=== PATIENT | male | born 1970 | race Caucasian/White ===

== ENCOUNTER 2019-09-14 14:20 | Outpatient (CLI) | payer OTHER, SELFPAY ==
--- NOTE | 2019-09-14 14:45 | DI.RAD_ITS ---
EXAM: XR CHEST 2V PA LATERAL CLINICAL HISTORY: Smoker with unintentional weight loss, R63.4 ABNORMAL WEIGHT LOSS TECHNIQUE: 2D digital imaging was performed. COMPARISON: No exams were available for comparison FINDINGS: MEDIASTINUM: Normal. HEART: Normal. PULMONARY VASCULATURE: Normal. LUNGS: Clear. Hyperinflation of the lungs with flattened diaphragms consistent with COPD. PLEURAL SPACE: No pleural effusion or pneumothorax. BONE:Normal. OTHER FINDINGS:Normal. IMPRESSION: No acute pulmonary findings. COPD. DATA REPOSITORY: RADIATION DOSE DELIVERED:
== END 2019-09-14 14:40 ==
PROVIDERS: PCP Family Medicine; Visit Provider Family Medicine
DX: R63.4 Abnormal weight loss (principal); F17.210 Nicotine dependence, cigarettes, uncomplicated; J44.9 Chronic obstructive pulmonary disease, unspecified
CPT/HCPCS: 71046

== ENCOUNTER 2019-09-15 01:48 | Outpatient (CLI) | payer OTHER, SELFPAY ==
[2019-09-15 13:43] LABS: Abs Immature Grans 0.01 k/cumm (0.0-0.09); Absolute Basophil Count 0.03 k/cumm (0.0-0.2); Absolute Eosinophil Count 0.21 k/cumm (0.0-0.7); Absolute Lymphocyte Count 2.23 k/cumm (1.2-3.4); Absolute Monocyte Count 0.75 k/cumm (0.11-0.7); Basophils % 0.4; Eosinophils % 3.1; HGB 13.9 g/dL (13.5-17.5); Immature Grans % 0.1 %; Lymphocytes % 33.1; Mean Corp. HGB Concentration 33.9 g/dL (32.0-36.0); Mean Corpuscular Hemoglobin 31.7 pg (27.0-33.0); Mean Corpuscular Volume 93.6 fL (80-95); Monocytes % 11.1; Neutrophils % 52.2; Platelet Count 428 x1000/uL (130-400); RBC 4.38 m/cumm (4.50-6.00); RBC Distribution Width 14.3 % (11.8-14.1); White Blood Cell Count 6.73 k/cumm (4.4-10.8)
[2019-09-15 14:36] LABS: ESR 8 mm/hr (0-15)
[2019-09-15 14:40] LABS: ALT 27 U/L (16-63); AST 20 U/L (15-37); Albumin 4.1 g/dL (3.4-5.0); Alkaline Phosphatase 53 U/L (46-116); Anion Gap 9.5 mmol/L (3-11); BUN 17 mg/dL (7-18); Bilirubin, Total 0.3 mg/dL (0.2-1.0); CO2 27.5 mmol/L (21.0-32.0); CREATININE 1.04 mg/dL (0.70-1.30); Calcium 9.4 mg/dL (8.5-10.1); Calculated LDL 111 mg/dL (<100); Chloride 106 mmol/L (98-107); Cholesterol 197 mg/dL (<200); Glucose 91 mg/dL (74-106); HDL Cholesterol 80 mg/dL (40-60); Sodium 143 mmol/L (136-145); TSH (W/Ref FT4) 1.19 uIU/mL (0.36-3.74); Total Protein 6.5 g/dL (6.4-8.2); Triglyceride 34 mg/dL (<150)
[2019-09-16 08:46] LABS: PSA, Screening 0.3 ng/mL (0.0-3.5)
== END 2019-09-15 02:08 ==
PROVIDERS: PCP Family Medicine; Visit Provider Family Medicine
DX: R63.4 Abnormal weight loss (principal); Z80.42 Family history of malignant neoplasm of prostate
CPT/HCPCS: 36415; 80053; 80061; 84153; 85652; 84443; 85025

== ENCOUNTER 2019-11-17 07:13 | Day surgery (SDC) | payer OTHER, SELFPAY ==
[2019-11-17 07:26] VITALS: BP 124/79; PULSE 76; RESP 18; TEMP 36.7; O2SAT 99
[2019-11-17] MEDS: Lactated Ringers 1,000 ML 80 ML IV (08:02)
--- NOTE | 2019-11-17 08:54 | BOWEL_PTH ---
PATIENT: Jeferson Zamudio LOC: [facility] U#:[id number] AGE/SX: 49/M ROOM: RE11/17/[address]: Lashonda Boyle : 1970 BED: DIS: 11/17/2019 SPEC #: [id number] RECD: 11/17/19 12:37 STATUS: JEANNA REAndrea #: [id number] CONRAD: 11/17/19 08:[address]: Lashonda Boyle DEPT: Surgical Specimen RECD BY: Toyin Oconnell ENTERED: 11/17/19 12:46 SP TYPE: Bowel OTHR DR: Devon Ponce MD Tissues: 1 - BIOPSY BOWEL 2 - BIOPSY BOWEL 3 - BIOPSY BOWEL 4 - BIOPSY BOWEL 5 - BIOPSY BOWEL Procedures: GROSS AND MICRO LEVEL 4 Comments: [id number]
--- NOTE | 2019-11-17 09:38 | W.PM.OP ---
Date of service: 11/17/19 Time of Service: 09:38 Operative Note Operative Note DATE OF PROCEDURE: 11/17/19 PRE-OP DIAGNOSIS: screening/rectal bleeding POST-OP DIAGNOSIS: other (diverticula and polyps) PROCEDURE: After informed consent was obtained the patient was taken to the procedure room and placed in a left decubitous position. Monitors were applied and a time out was done. The patients name, date of , procedure, allergies to medications and metal in their body was reviewed. The patient was then sedated. Once sedated and comfortable a rectal exam was done. External exam was normal. Internal exam revealed a normal sphincter tone and no palpable masses. The scope was then introduced and retrofelexed. No internal hemorrhoids were identified. The is polyps in a 1 cm polyp in the rectum that was removed with a hot snare. There are 2 other smaller, 2 mm polyps in the rectum that removed with cold polypectomy forcep. There is a polyp at 20 cm that is removed with a hot polypectomy forcep. There Is another 1cm polyp at 50 cm that is removed with snare. There is a 1 cm flat polyp at 80 cm that is removed with a hot polypectomy forcep. And another small polyp 3 mm polyp at 80 cm that is removed with a cold forcep. There is x3 polyps in the cecum that are removed with a cold forcep. The scope was then advanced to the cecum w/ difficulty. The TI and appendiceal orifice were identified. The prep was good. The scope was then slowly retracted over 20 minutes back into the rectum. He has a very few small diverticular openings that are confined to the sigmoid colon. There is no signs of active bleeding or infection. The mucosa is otherwise pink and healthy. The scope was removed and the patient was woken up and taken back to Same day surgery in stable condition. The patient tolerated the procedure well and there were no immediate complications. Follow up: The patient should follow up in 2-3 years- path pd unless they develop changes in bowel habits or other new gastrointestinal complaints.
--- NOTE | 2019-11-17 09:48 | W.PM.DSUDISC ---
Discharge Plan Disposition Patient Disposition: HOME Condition: Good Discharge Details Reason For Visit: colon scope Attending Provider: Lashonda Boyle Primary Care Provider: Devon Ponce Home Meds and New Rx's Prescriptions: Continued ibuprofen 200 MG tablet 800 mg PO TID PRNRF: 0 Discontinued polyethylene glycol 3350 17 gram/dose powder 238 g PO ONCE Qty: 238 RF: 0 bisacodyl [Dulcolax (bisacodyl)] 5 mg tablet,delayed release (DR/EC) 5 mg PO ONCE Qty: 4 RF: 0 Discharge Instructions Additional Instructions: Findings:6 polyps and minor diveritcula Follow up: Will need to repeat CE in 2-3yrs -No ASA/NSAID's x 10days. Tylenol is OK -May have some bleeding w/ first BM -No lifting over 20 pounds or strenuous activity x72 hours. -Small light meals x24 hours Please call if you develop: fevers >101.5 Nausea or Vomiting Abdominal pain that is not transient DAY SURGERY UNIT POST COLONOSCOPY INSTRUCTIONS 1. Because there will be medication in your system for the next 24 hours, you may feel a little sleepy. Your coordination will be affected. Therefore: a. Do not drive or operate dangerous equipment for 24 hours. b. Do not drink alcohol beverages for 24 hours (not even beer). c. Plan to go home and rest for the day. 2. Generally there are no restrictions on your activity after a day or so has gone by, but you may feel a bit fatigued for a few days. 3 After you arrive home you may have a light meal and return to a normal diet as you can tolerate it without feeling sick to your stomach. 4. After surgery, you may feel pain or discomfort. This should be only transient, but if it persists please contact your doctor. 5. If there are any questions regarding the findings of your procedure, please feel free to contact your doctor. 6. If you are unable to contact your doctor with a problem, contact the hospital at [phone]. 7. Continue all your regular medications unless directed otherwise. I understand the above instructions and have no questions. Signature of Patient or Responsible Adult Escort Date/Time Name of Responsible Adult Escort Signature of Nurse Date/Time Discharge Orders Discharge Orders: Discharge Order (Routine); Ordered 11/17/19 Ordered By: Lashonda Boyle DS: Diagnosis Discharge Diagnosis (1) COPD (chronic obstructive pulmonary disease): Status: Chronic (2) Adenomatous polyps: Status: Acute (3) Diverticula of colon: Status: Acute
[2019-11-17 10:05] VITALS: BP 106/64; PULSE 55; RESP 18; TEMP 36.3; O2SAT 100
== END 2019-11-17 10:25 | disposition home or self-care (01) ==
PROVIDERS: PCP Family Medicine; Visit Provider Surgery
PROC: 0DJD8ZZ Inspection of Lower Intestinal Tract, Via Natural or Artificial Opening Endoscopic (ICD-10-PCS; CPT 45378; principal; 2019-11-17 08:15)
DX: Z12.11 Encounter for screening for malignant neoplasm of colon; K57.30 Diverticulosis of large intestine without perforation or abscess without bleeding; K63.5 Polyp of colon
CPT/HCPCS: 45385; 45380; 45384; 88305; J2704

== ENCOUNTER 2019-12-13 00:49 | Outpatient (CLI) | payer OTHER, SELFPAY ==
[2019-12-13 08:20] LABS: CREATININE 0.99 mg/dL (0.70-1.30)
[2019-12-13] MEDS: Normal Saline - Diluent 50 ML VIAL IV (09:53)
[2019-12-13] MEDS: Omnipaque 350 MG/ML 100 ML BTL IJ (09:56)
--- NOTE | 2019-12-13 10:14 | DI.CT_ITS ---
EXAM: CT CHEST/ABD/PEL W CLINICAL HISTORY: Unintentional weight loss of > 10% in 2ppd smoker,R63.4,F17.210. TECHNIQUE: Imaging Protocol: Axial computed tomography images with coronal and sagittal reformatted images were created and reviewed CONTRAST MATERIAL: Intravenous: Omnipaque 350 Contrast volume:100 cc Oral: yes / COMPARISON: MR MRI - LUMBAR SPINE WO CONTRAST from 07/17/2015 FINDINGS: CHEST: Thyroid: Normal Tracheobronchial tree: No bronchiectasis. Mediastinum and Eli: No dominant adenopathy or fluid collection. Pulmonary parenchyma: No consolidation or dominant measurable mass. Mild centrilobular emphysema. Pleura: No effusion or pneumothorax. Lymph nodes: Within normal limits. Aorta: Thoracic portion non-dilated. No significant atherosclerotic changes. Heart: Normal size. No visible coronary artery calcifications. Bones: Mild degenerative changes. ABDOMEN: Liver: Normal density. 3.8 centimeter mass in the right lobe at the level of the right kidney. Tiny cyst left lobe. Gallbladder and biliary tract: No radiodense calculus or dilation. Pancreas: Normal density, no abnormal calcifications or inflammatory process. Spleen: Normal. Kidneys: Normal size, contour and axis. No radiodense stones or obstructive uropathy. No masses seen. Adrenal glands: No masses seen. Aorta: Abdominal portion non-dilated. Lymph nodes: Within normal limits. PELVIS: Bladder: Symmetric distention, no gross wall thickening. Bowel: No obstruction or bowel wall thickening. Normal appendix. Peritoneal cavity: No ascites, collection or mesenteric inflammatory response. Bones: left-sided pars defect at L5. Degenerative disc changes at L5-S1. Reproductive organs: Within normal limits. IMPRESSION: 1. Mild centrilobular emphysema. No pulmonary mass or adenopathy. 2. 3.8 centimeter mass in the right lobe of the liver. MRI is recommended for further evaluation. RADIATION DOSE DELIVERED: 1,547.04mGy.cm Total DLP DATA REPOSITORY: All CT scans at this facility are submitted to the National Radiology Data Registry (NRDR) Dose Index Registry (DIR) with the [employer] (A[employer]). RADIATION OPTIMIZATION: All CT scans at this facility use at least one of these dose optimization te chniques: automated exposure control; mA and/or kV adjustment per patient size (includes targeted exa ms where dose is matched to clinical indication); or iterative reconstruction.
[2019-12-13] MEDS: Omnipaque 350 MG/ML 50 ML BTL IJ (10:16)
[2019-12-13] MEDS: Breeza Beverage 473 ML BTL PO (10:18)
== END 2019-12-13 01:09 ==
PROVIDERS: PCP Family Medicine; Visit Provider Family Medicine
DX: F17.210 Nicotine dependence, cigarettes, uncomplicated (principal); R63.4 Abnormal weight loss; J43.2 Centrilobular emphysema; R16.0 Hepatomegaly, not elsewhere classified
CPT/HCPCS: 74177; 71260; 82565; J3490; Q9967

== ENCOUNTER 2019-12-20 01:17 | Outpatient (CLI) | payer OTHER, SELFPAY ==
[2019-12-20] MEDS: Gadoterate meglumine 20 ML VIAL 10 ML IVP (09:17)
--- NOTE | 2019-12-20 09:20 | DI.MRI_ITS ---
EXAM: MR ABDOMEN WO/W CLINICAL HISTORY: 3.8 cm liver mass noted on CT scan of the abdomen,R16.0.. TECHNIQUE: Multiplanar multisequence MRI was performed. COMPARISON: CR XR CHEST 2V PA LATERAL from 09/14/[address] CHEST/ABD/PEL W from 12/13/2019 FINDINGS: MR examination of the abdomen was performed utilizing hepatic scanning protocol including multiphasic post contrast imaging. Patient had a 3.8 cm in diameter hepatic mass identified on recent abdominal CT. T2 weighted imaging shows a 3.3 cm in diameter lobulated mass of the right hepatic lobe posteriorly. This is high signal on T2 weighted imaging. An 11 millimeter in diameter left lobe high signal hepa tic mass is also identified on T2 weighted imaging. These findings are consistent with hepatic heman gioma. On T1 weighted imaging the mass is mildly decreased signal and appears lobulated. Diffusion-weighted imaging shows high signal in the right hepatic lobe lesion. Lesion is of intermed iate signal on ADC imaging. Post contrast enhancement images show peripheral enhancement with nodular to irregular appearance. T he final image was a 5 minutes post contrast delayed image which shows significant but incomplete ??? filling in??? of the lesion, the findings are consistent with hemangioma but not definitively diagnos tic. Spleen, adrenals, and kidneys are unremarkable in appearance by MR criteria. Abdominal aorta is of n ormal diameter. No retroperitoneal adenopathy. IMPRESSION: 3-4 cm in diameter right lobe posterior segment hepatic lesion has appearance consistent with but not definitively diagnostic of hemangioma. Follow-up CT examination of the liver is recommended in 6 mo nths. DATA REPOSITORY:
== END 2019-12-20 01:37 ==
PROVIDERS: PCP Family Medicine; Visit Provider Family Medicine
DX: K76.89 Other specified diseases of liver (principal); R16.0 Hepatomegaly, not elsewhere classified
CPT/HCPCS: 74183

== ENCOUNTER 2020-03-30 01:39 | Outpatient (CLI) | payer OTHER, SELFPAY ==
[2020-03-30 22:34] LABS: COVID-19 RT-PCR UVMMC Result Negative (Negative)
== END 2020-03-30 01:40 | disposition home or self-care (01) ==
LOC: LBO 01:39
PROVIDERS: PCP Family Medicine; Visit Provider Nurse Practitioner Family
DX: Z20.822 Contact with and (suspected) exposure to COVID-19 (principal)
CPT/HCPCS: U0003

== ENCOUNTER 2020-05-28 16:18 | Outpatient (REF) | payer OTHER, SELFPAY ==
[2020-05-28 16:29] LABS: Abs Immature Grans 0.04 10^3/uL (0.0-0.06); Absolute Basophil Count 0.07 10^3/uL (0.0-0.2); Absolute Eosinophil Count 0.15 10^3/uL (0.0-0.7); Absolute Lymphocyte Count 2.82 10^3/uL (1.2-3.4); Absolute Neutrophil Count 6.64 10^3/uL (1.2-6.7); Basophils % 0.7; Eosinophils % 1.4; HCT 42.2 % (40.0-50.0); HGB 14.2 g/dL (13.5-17.5); Immature Grans % 0.4; Lymphocytes % 26.3; MCH 31.5 pg (27.0-33.0); MCHC 33.6 % (32.0-36.0); MCV 93.6 fL (80-95); MPV 9.8 fL (8.0-11.0); Monocytes % 9.3; Neutrophils % 61.9; Nucleated RBC 0 %; Platelet Count 417 10^3/uL (130-400); RBC 4.51 10^6/uL (4.36-5.78); RDW 13.2 % (11.8-14.1); RDW-SD 45.4 fL; WBC 10.72 10^3/uL (4.4-10.8)
== END 2020-05-28 16:19 | disposition home or self-care (01) ==
LOC: LBN 16:18
PROVIDERS: PCP Family Medicine; Visit Provider Surgery
DX: K62.5 Hemorrhage of anus and rectum (principal); F17.210 Nicotine dependence, cigarettes, uncomplicated
CPT/HCPCS: 85025

== ENCOUNTER 2020-06-13 02:38 | Outpatient (CLI) | payer OTHER, SELFPAY ==
[2020-06-13 10:30] LABS: Source Nasal/Nares
[2020-06-13 15:51] LABS: COVID-19 PCR Negative (Negative)
== END 2020-06-13 02:39 | disposition home or self-care (01) ==
LOC: LBO 02:38
PROVIDERS: PCP Family Medicine; Visit Provider Surgery
DX: Z20.822 Contact with and (suspected) exposure to COVID-19 (principal); Z01.818 Encounter for other preprocedural examination
CPT/HCPCS: 87635

== ENCOUNTER 2020-06-15 06:18 | Day surgery (SDC) | payer OTHER, SELFPAY ==
[2020-06-15 06:27] VITALS: BP 118/73; PULSE 75; RESP 16; TEMP 36.3; O2SAT 94
[2020-06-15] MEDS: Lactated Ringers 1,000 ML 80 ML IV (06:52)
--- NOTE | 2020-06-15 08:25 | W.COLOREPORT ---
Date of service: 06/15/20 Time of Service: 08:25 Colonoscopy Report Date of procedure: 06/15/20 Pre-op diagnosis general: high grade dysplastic polyp in rectum Post-op diagnosis procedure note: same Procedure: internal hemorrhoid banding Anesthesia Type: General:No Airway Estimated blood loss (mL): 2 Pathology: none sent Complications: None Disposition: same day Prep: Miralax/Dulcolax Retraction Time: 12 Procedure Description: After informed consent was obtained the patient was taken to the procedure room and placed in a left decubitous position. Monitors were applied and a time out was done. The patients name, date of , procedure, allergies to medications and metal in their body was reviewed. The patient was then sedated. Once sedated and comfortable a rectal exam was done. He does have external hemorrhoids. Internal exam revealed a normal sphincter tone and no palpable masses. The scope was then introduced and retrofelexed. He has grade 1 internal hemorrhoids. X2. The scope was then advanced to the cecum w/out difficulty. The TI and appendiceal orifice were identified. The prep was good. The scope was then slowly retracted over 12 minutes back into the rectum. There are no polyps, AVMs, or diverticula are apparent today. The scar from where the previous polyp had been excised in the rectum was visualized. There is no signs of any recurrent polyps at this time. He does have x2 internal hemorrhoids. These were successfully banded today with no bleeding noted. The scope was removed and the patient was woken up and taken back to Same day surgery in stable condition. The patient tolerated the procedure well and there were no immediate complications. He will have a repeat CT today for Follow-up of the hemangioma in his liver. A 6-month follow-up study was recommended by radiology. Follow up: The patient should follow up in 1yr unless they develop changes in bowel habits or other new gastrointestinal complaints. addendum: Stable 3.3 centimeter liver mass per CT.
--- NOTE | 2020-06-15 09:27 | SUR.PHASEII ---
Pt completed drinking contrast at 09. Radiology phoned to inform. They stated they would be over to perform CT in approx. 60-90 mins.
--- NOTE | 2020-06-15 10:35 | W.PM.DSUDISC ---
Discharge Plan Disposition Patient Disposition: HOME Condition: Good Discharge Details Reason For Visit: colon scope Attending Provider: Lashonda Boyle Primary Care Provider: Devon Ponce Home Meds and New Rx's Prescriptions: Continued Chantix Starting Month Box 0.5 mg (11)- 1 mg (42) tablets,dose pack See Rx Instructions PO PER PKG DIR Qty: 53 RF: 0 nicotine 21-14-7 mg/24 hr patch, TD daily, sequential 1 patch transdermal DAILY Qty: 56 RF: 0 ascorbate calcium (vitamin C) 500 mg tablet 500 mg PO DAILY RF: 0 aspirin [Adult Aspirin Regimen] 81 mg tablet,delayed release (DR/EC) 81 mg PO DAILY RF: 0 cholecalciferol (vitamin D3) 25 mcg (1,000 unit) capsule 25 mcg PO DAILY RF: 0 nicotine (polacrilex) [Nicorette] 4 mg gum 4 mg buccal Q2H Qty: 40 RF: 3 ibuprofen 200 MG tablet 800 mg PO TID PRNRF: 0 Discontinued bisacodyl [Dulcolax (bisacodyl)] 5 mg tablet,delayed release (DR/EC) 5 mg PO ONCE Qty: 4 RF: 0 polyethylene glycol 3350 17 gram/dose powder 17 g PO ONCE Qty: 238 RF: 0 Discharge Instructions Additional Instructions: Findings:No polyps Follow up:TeleHealth appt: Please call if you develop: fevers >101.5 Nausea or Vomiting Abdominal pain that is not transient DAY SURGERY UNIT POST COLONOSCOPY INSTRUCTIONS 1. Because there will be medication in your system for the next 24 hours, you may feel a little sleepy. Your coordination will be affected. Therefore: a. Do not drive or operate dangerous equipment for 24 hours. b. Do not drink alcohol beverages for 24 hours (not even beer). c. Plan to go home and rest for the day. 2. Generally there are no restrictions on your activity after a day or so has gone by, but you may feel a bit fatigued for a few days. 3 After you arrive home you may have a light meal and return to a normal diet as you can tolerate it without feeling sick to your stomach. 4. After surgery, you may feel pain or discomfort. This should be only transient, but if it persists please contact your doctor. 5. If there are any questions regarding the findings of your procedure, please feel free to contact your doctor. 6. If you are unable to contact your doctor with a problem, contact the hospital at [phone]. 7. Continue all your regular medications unless directed otherwise. I understand the above instructions and have no questions. Signature of Patient or Responsible Adult Escort Date/Time Name of Responsible Adult Escort Signature of Nurse Date/Time Home Care Instructions after Rectal Surgery Pain control: Ibuprofen 600mg 6hrs (take w/ food. Do not take on an empty stomach) and Tylenol 1000mg by mouth (ibuprofen 400-600mg) every 8 hours. Do not take if you have ulcers or sensitivity to aspirin. Do not take Tylenol if you have hepatitis or liver failure. Alternate the Tylenol and ibuprofen. Take pain meds continuously for the first 72hrs. After 72hrs, you can take as needed if you are having pain. How to prevent constipation: The first bowel movement after surgery will be painful. Do not let yourself get constipated. Stay on a stool softener for the first two weeks after surgery. It is recommended that you use a fiber supplement (Metamucil, Citrucel) daily (1 tablespoon in 8 oz of water). If you do not have a bowel movement daily, use Milk of Magnesia or Miralax. You may have bleeding or drainage after rectal surgery; especially when you move your bowels. Use a sanitary napkin to collect the discharge. If you are passing large clots or having to change the pad more than every 4 hours, call the clinic or go to the ER. You may experience spasms in the rectal muscles. This is normal after surgery and last for about 3-5days. They can become more intense with bowel movements. The best remedy is to soak in a bathtub of plain warm water- no Epsom salts, essential oil or soap. It takes about 10 minutes further the spasm to stop. You may want to do this after BM as well. It is ok to shower. Avoid soap on the surgical area. Use a pillow to sit on. Follow a mild bland diet. Avoid alcohol, spicy food, citrus, and tomatoes. Avoid strenuous activity (running, jogging, and power walking, swimming, weight lifting) for 24 hrs . Activity:: see d/c instructions Diet:: Small light meals x24 hours DS: Diagnosis Discharge Diagnosis (1) Tubular adenoma: Status: Acute (2) Serrated adenoma of colon: Status: Acute (3) Cigarette smoker two packs a day or less: Status: Acute (4) Liver mass, right lobe: Status: Acute (5) Hemorrhoid: Status: Acute
[2020-06-15 11:04] VITALS: BP 125/62; PULSE 58; RESP 16; TEMP 36.6; O2SAT 99
== END 2020-06-15 11:20 | disposition home or self-care (01) ==
PROVIDERS: PCP Family Medicine; Visit Provider Surgery
PROC: 0DJD8ZZ Inspection of Lower Intestinal Tract, Via Natural or Artificial Opening Endoscopic (ICD-10-PCS; CPT 45378; principal; 2020-06-15 07:30)
DX: Z12.11 Encounter for screening for malignant neoplasm of colon (principal); Z86.010 Personal history of colon polyps; K64.8 Other hemorrhoids; K64.0 First degree hemorrhoids
CPT/HCPCS: 45398; J2001; J2704

== ENCOUNTER 2020-11-21 08:48 | Outpatient (CLI) | payer OTHER, SELFPAY ==
[2020-11-22 02:15] LABS: COVID-19 RT-PCR UVMMC Result Negative (Negative)
== END 2020-11-21 08:49 | disposition home or self-care (01) ==
LOC: LBO 08:51
PROVIDERS: PCP Nurse Practitioner Family; Visit Provider Nurse Practitioner Family
DX: Z20.822 Contact with and (suspected) exposure to COVID-19 (principal)
CPT/HCPCS: U0003

== ENCOUNTER 2021-02-01 11:26 | Emergency (ER) | payer OTHER, SELFPAY ==
[2021-02-01 11:31] VITALS: BP 127/80; PULSE 66; RESP 16; TEMP 36.4; O2SAT 97
--- NOTE | 2021-02-01 11:45 | RT.EKG_ITS ---
APPROVED REPORT Exam: Resting ECG Reason for Exam: BRADYCARDIA Patient Location: E HR:56 bpm ECG Measurements Heart Rate 56 AXIS DE 158 P -20 QRSd 94 QRS 68 QT 426 T 65 QTc 411 Conclusion Sinus bradycardia...rate< 60 ST elev, probable normal early repol pattern...ST elevation, age<55
--- NOTE | 2021-02-01 12:24 | W.ED.GENAD ---
Discharge Plan Disposition Patient Disposition: HOME Condition: Good Discharge Details Clinical Impression: Laceration Primary Care Provider: Jl Metz ED Provider: Toyin Martinez Home Meds and New Rx's Prescriptions: Continued Chantix Starting Month Box 0.5 mg (11)- 1 mg (42) tablets,dose pack See Rx Instructions PO PER PKG DIR Qty: 53 RF: 0 nicotine 21-14-7 mg/24 hr patch, TD daily, sequential 1 patch transdermal DAILY Qty: 56 RF: 0 ascorbate calcium (vitamin C) 500 mg tablet 500 mg PO DAILY RF: 0 aspirin [Adult Aspirin Regimen] 81 mg tablet,delayed release (DR/EC) 81 mg PO DAILY RF: 0 cholecalciferol (vitamin D3) 25 mcg (1,000 unit) capsule 25 mcg PO DAILY RF: 0 nicotine (polacrilex) [Nicorette] 4 mg gum 4 mg buccal Q2H Qty: 40 RF: 3 ibuprofen 200 MG tablet 800 mg PO TID PRNRF: 0 magnesium 500 mg Tablet 500 mg PO DAILY RF: 0 Discharge Instructions Instructions: Laceration (ED) Additional Instructions: Keep wound clean and dry Suture removal in 10 days With spreading redness, fever, worsening pain, please return to the emergency room for reassessment as you may have an infected wound Try to elevate your arm as much as possible Tylenol as needed for discomfort, 650 mg every 4-6 hours Referrals: Jl Metz, [employer] [Primary Care Provider] - Discharge Data Discharge Date/Time-TO BE ENTERED AT DEPARTURE: 02/01/21 12:53 Medical Decision Making Patient has laceration which will need repair He is neurovascularly intact He declines tetanus update at this time He is aware of the risk associated with it having a tetanus vaccine including not assessed He is fully alert, oriented, of decisional capacity He tolerated suture placement however he did become presyncopal, he was recovered from this and is feeling symptomatically improved, ambulatory gait at time of discharge home He will need suture removal in approximately 10 days Return precautions discussed and patient expressed understanding Medical Records Medical records reviewed: Yes I reviewed the patient's medical records. HPI General Mode of arrival: ambulatory. Date/Time Provider Initiated Documentation: 02/01/21 11:38. Limitations to Documentation: no limitations. Information obtained by: patient. HPI Narrative: This 60-year-old gentleman presents with laceration to left forearm. He denies any additional injury. He denies any strength or sensation change. He states his tetanus is up to date. This occurred from a grinder hand at work reportedly. Related Data Home Medications Medication Instructions Recorded Confirmed ibuprofen 800 mg PO TID PRN 07/09/15 06/15/20 varenicline 0.5 mg (11)-1 mg (42) See Rx Instructions PO PER PKG DIR 12/07/19 06/15/20 tablets in a dose pack #53 dose pk nicotine 1 patch TRANSDERMAL DAILY #56 patch 12/16/19 06/15/20 21mg/24hr-14mg/24hr-7mg/24hr daily transderm patches,sequentl ascorbate calcium (vitamin C) 500 500 mg PO DAILY 05/04/20 02/01/21 mg tablet aspirin 81 mg tablet,delayed 81 mg PO DAILY 05/04/20 06/15/20 release cholecalciferol (vitamin D3) 25 25 mcg PO DAILY 05/04/20 02/01/21 mcg (1,000 unit) capsule nicotine (polacrilex) 4 mg gum 4 mg BUCCAL Q2H #40 ea 05/14/20 06/15/20 magnesium 500 mg PO DAILY 02/01/21 02/01/21 Previous Rx's Medication Instructions Recorded varenicline 0.5 mg (11)-1 mg (42) See Rx Instructions PO PER PKG DIR 12/07/19 tablets in a dose pack #53 dose pk nicotine 1 patch TRANSDERMAL DAILY #56 patch 12/16/19 21mg/24hr-14mg/24hr-7mg/24hr daily transderm patches,sequentl nicotine (polacrilex) 4 mg gum 4 mg BUCCAL Q2H #40 ea 05/14/20 Allergies Allergy/AdvReac Type Severity Reaction Status Date / Time No Known Allergies Allergy Verified 02/01/21 11:34 General Stated Complaint: Laceration GEMA: 4 Review of Systems All systems reviewed & are unremarkable except as noted in HPI and below PFSH All Active Problems (Updated 02/01/21 @ 12:30 by FREDY Villarreal) Laceration (Acute) Hemorrhoid (Acute) Liver mass, right lobe (Acute) Cigarette smoker two packs a day or less (Acute) Unintended weight loss (Acute) Colon polyp, hyperplastic (Acute ~10/2019) Tubular adenoma (Acute ~10/2019) Serrated adenoma of colon (Acute ~10/2019) Diverticula of colon (Acute) Adenomatous polyps (Acute) Hematochezia (Acute) COPD (chronic obstructive pulmonary disease) (Chronic) Surgical History (Updated 06/15/20 @ 09:21 by Keila Scott) History of colonoscopy (~05/2020) Social History (Updated 11/04/19 @ 15:23 by FREDY Christina) Smoking/Tobacco Use Status: Current every day Tobacco Type: cigarettes Tobacco: How many years used: 38 Smoking risk assessment performed?: Yes Alcohol Intake: current Alcohol Intake frequency: a few times a month Alcohol type: beer and hard liquor Drug use: Daily Substance use type: marijuana Current gender identity: male Do you feel safe at home: Yes Do you feel safe in your relationship?: Yes Exam Const General: cooperative, comfortable and no acute distress Extrem Elbow/forearm/wrist images: 1. 1 inch laceration noted to left forearm Other: Neurovascularly intact Course Vital Signs Vital signs: Vital Signs Temperature 36.4 C L 02/01/21 11:31 Pulse 66 02/01/21 11:31 Respiratory Rate 16 02/01/21 11:31 Blood Pressure 127/80 02/01/21 11:31 Pulse Oximetry 97 02/01/21 11:31 Temperature 36.4 C L 02/01/21 11:31 Temperature Source Temporal Artery Scan 02/01/21 11:31 Pulse 66 02/01/21 11:31 Respiratory Rate 16 02/01/21 11:31 Respiratory Effort Non-Labored 02/01/21 11:36 Blood Pressure 127/80 02/01/21 11:31 Blood Pressure Position Sitting 02/01/21 11:31 Pulse Oximetry 97 02/01/21 11:31 Oxygen Delivery Method Room Air 02/01/21 11:31 Oxygen Flow Rate 0 02/01/21 11:31 Procedures Laceration Laceration 1: Site: upper extremity Side (If applicable): left Size (cm): 3 Description: linear Local Anesthetic: Lidocaine 1% Amount of anesthesia used (mL): 4 Pre-repair: wound explored and irrigated extensively Skin layer closed with: nylon Size (cm): 4-0 Number of sutures: 3 Technique: other (vertical mattress) Subcutaneous layer closed with: vicryl Size: 4-0 Number of sutures: 1
[2021-02-01 12:52] VITALS: BP 108/70; PULSE 52; RESP 16; TEMP 36.4; O2SAT 97
== END 2021-02-01 12:53 | disposition home or self-care (01) ==
PROVIDERS: Emergency Provider Physician Assistant; PCP Nurse Practitioner Family
DX: S51.812A Laceration without foreign body of left forearm, initial encounter (principal); W26.8XXA Contact with other sharp object(s), not elsewhere classified, initial encounter; R00.1 Bradycardia, unspecified; R55 Syncope and collapse; Z53.29 Procedure and treatment not carried out because of patient's decision for other reasons
CPT/HCPCS: 12002; 36416; 82962; 93005; 99283; 93010

== ENCOUNTER 2021-02-11 15:59 | Emergency (ER) | payer OTHER, SELFPAY ==
[2021-02-11 16:02] VITALS: BP 123/70; PULSE 74; RESP 15; TEMP 36.7; O2SAT 99
--- NOTE | 2021-02-11 16:03 | ED.GENADUL_ITS ---
Discharge Plan Disposition Patient Disposition: HOME Condition: Stable Discharge Details Clinical Impression: Encounter for removal of sutures Primary Care Provider: Jl Metz ED Provider: Noé Vick Home Meds and New Rx's Prescriptions: Continued Chantix Starting Month Box 0.5 mg (11)- 1 mg (42) tablets,dose pack See Rx Instructions PO PER PKG DIR Qty: 53 RF: 0 nicotine 21-14-7 mg/24 hr patch, TD daily, sequential 1 patch transdermal DAILY Qty: 56 RF: 0 ascorbate calcium (vitamin C) 500 mg tablet 500 mg PO DAILY RF: 0 aspirin [Adult Aspirin Regimen] 81 mg tablet,delayed release (DR/EC) 81 mg PO DAILY RF: 0 cholecalciferol (vitamin D3) 25 mcg (1,000 unit) capsule 25 mcg PO DAILY RF: 0 nicotine (polacrilex) [Nicorette] 4 mg gum 4 mg buccal Q2H Qty: 40 RF: 3 ibuprofen 200 MG tablet 800 mg PO TID PRNRF: 0 magnesium 500 mg Tablet 500 mg PO DAILY RF: 0 Discharge Instructions Additional Instructions: Sutures removed without difficulty. Keep the area clean and dry. Please watch for new or worsening symptoms and return to the ER for any concerns Medical Decision Making 50-year-old gentleman presents for suture removal, no additional concerns or complaints. No signs of infection. 3 sutures removed without difficulty. Patient tolerated well Standard discharge and return precautions provided This documentation was generated using [employer] system, please disregard any oddities of phrase or misspellings. Medical Records Medical records reviewed: Yes I reviewed the patient's medical records. HPI General Mode of arrival: ambulatory . Date/Time Provider Initiated Documentation: 02/11/21 16:01 . Limitations to Documentation: no limitations . Information obtained by: patient . HPI Narrative: 50-year-old gentleman presents for a left arm suture removal, sutures placed 10 days ago. He denies any fever, redness, drainage, numbness, tingling, weakness. No concern for infection. No additional concerns or complaints. Related Data Home Medications Medication Instructions Recorded Confirmed ibuprofen 800 mg PO TID PRN 07/09/15 02/11/21 varenicline 0.5 mg (11)-1 mg (42) See Rx Instructions PO PER PKG DIR 12/07/19 02/11/21 tablets in a dose pack #53 dose pk nicotine 1 patch TRANSDERMAL DAILY #56 patch 12/16/19 02/11/21 21mg/24hr-14mg/24hr-7mg/24hr daily transderm patches,sequentl ascorbate calcium (vitamin C) 500 500 mg PO DAILY 05/04/20 02/11/21 mg tablet aspirin 81 mg tablet,delayed 81 mg PO DAILY 05/04/20 02/11/21 release cholecalciferol (vitamin D3) 25 25 mcg PO DAILY 05/04/20 02/11/21 mcg (1,000 unit) capsule nicotine (polacrilex) 4 mg gum 4 mg BUCCAL Q2H #40 ea 05/14/20 02/11/21 magnesium 500 mg PO DAILY 02/01/21 02/11/21 Previous Rx's Medication Instructions Recorded varenicline 0.5 mg (11)-1 mg (42) See Rx Instructions PO PER PKG DIR 12/07/19 tablets in a dose pack #53 dose pk nicotine 1 patch TRANSDERMAL DAILY #56 patch 12/16/19 21mg/24hr-14mg/24hr-7mg/24hr daily transderm patches,sequentl nicotine (polacrilex) 4 mg gum 4 mg BUCCAL Q2H #40 ea 05/14/20 Allergies Allergy/AdvReac Type Severity Reaction Status Date / Time No Known Allergies Allergy Verified 02/11/21 16:06 General GEMA: 4 Review of Systems Constitutional Constitutional: Denies fever(s) and Denies weakness Musculoskeletal Musculoskeletal: Denies arthralgias, Denies numbness and Denies tingling Integumentary/Breasts Skin/Breast: Denies erythema Neurologic Neurologic: Denies numbness, Denies tingling and Denies weakness PFSH All Active Problems Laceration (Acute) Encounter for removal of sutures (Acute) Hemorrhoid (Acute) internal and external. Internal were banded 06/15/20 Liver mass, right lobe (Acute) Cigarette smoker two packs a day or less (Acute) Unintended weight loss (Acute) Colon polyp, hyperplastic (Acute ~10/2019) 11/17/19 Dr. Tico Boyle, 3 hyperplastic polyps, repeat colo 6 mo-1 year Tubular adenoma (Acute ~10/2019) 11/17/19 Dr. Tico Boyle-2 TA; 1 showing high-grade dysplasia, repeat colo 6 mo- 1 year scope May 2020 shows no recurrence. Repeat 1 yrs time. Serrated adenoma of colon (Acute ~10/2019) 11/17/19 Dr. Tico Boyle 2 sessile serrated adenoma, repeat colo 6 mo-1 year Diverticula of colon (Acute) Adenomatous polyps (Acute) Hematochezia (Acute) COPD (chronic obstructive pulmonary disease) (Chronic) Surgical History History of colonoscopy (~05/2020) Social History Smoking/Tobacco Use Status: Current every day Tobacco Type: cigarettes Tobacco: How many years used: 38 Smoking risk assessment performed?: Yes Alcohol Intake: current Alcohol Intake frequency: a few times a month Alcohol type: beer and hard liquor Drug use: Daily Substance use type: marijuana Current gender identity: male Do you feel safe at home: Yes Do you feel safe in your relationship?: Yes Exam Const General: cooperative, healthy appearing, comfortable and no acute distress Orientation: alert and awake HENMT Head: normal to inspection, normocephalic and atraumatic Eyes Conjunctivae: conjunctivae normal Neck Neck: normal visual inspection, trachea midline and supple Resp Effort & Inspection: normal respiratory effort and able to speak in complete sentences Cardio Rate: regular rate Rhythm: regular rhythm Skin General skin exam: no rashes or lesions noted Neuro General: patient alert, patient awake, moves all extremities and no focal motor deficits Sensory Exam: no sensory deficits noted Extrem General: full ROM and capillary refill normal Elbow/forearm/wrist images: 1. Well-healing sutured laceration. 3 sutures intact. No erythema, warmth, drainage, signs of secondary infection. Neuro, vascular, tendon intact Psych Appearance: grossly normal Mental Status: mental status grossly normal
== END 2021-02-11 16:47 | disposition home or self-care (01) ==
PROVIDERS: Emergency Provider Physician Assistant; PCP Nurse Practitioner Family
DX: S51.812D Laceration without foreign body of left forearm, subsequent encounter (principal); X58.XXXD Exposure to other specified factors, subsequent encounter; Z48.02 Encounter for removal of sutures

== ENCOUNTER 2021-02-18 08:27 | Outpatient (CLI) | payer OTHER, SELFPAY ==
[2021-02-19 22:57] LABS: COVID-19 RT-PCR UVMMC Result Negative (Negative)
== END 2021-02-18 08:28 | disposition home or self-care (01) ==
PROVIDERS: PCP Nurse Practitioner Family; Visit Provider Nurse Practitioner Family
DX: Z20.822 Contact with and (suspected) exposure to COVID-19 (principal)
CPT/HCPCS: U0003

== ENCOUNTER 2021-09-03 07:54 | Day surgery (SDC) | payer OTHER, SELFPAY ==
--- NOTE | 2021-09-02 19:58 | W.COLOREPORT ---
Colonoscopy Report Date of procedure: 09/03/21 Pre-op diagnosis general: A. polyps w/ dysplasia in rectum Post-op diagnosis procedure note: other (same/divertic/emorrhoids) Surgeon: Lashonda Boyle Anesthesia Type: General:No Airway Estimated blood loss (mL): 1 Complications: None Disposition: same day Prep: Miralax/Dulcolax Retraction Time: 12 Procedure Description: After informed consent was obtained the patient was taken to the procedure room and placed in a left decubitous position. Monitors were applied and a time out was done. The patients name, date of , procedure, allergies to medications and metal in their body was reviewed. The patient was then sedated. Once sedated and comfortable a rectal exam was done. External exam: hemorrhoids. Internal exam revealed a normal sphincter tone and no palpable masses. The prostate nl. The scope was then introduced and retrofelexed. Grade II internal hemorrhoids were identified. The scope was then advanced to the cecum w/out difficulty. The TI and appendiceal orifice were identified. The prep was BB PS 2 in the cecum and right colon and be BPS 3 in all other segments for a total of 8. The scope was then slowly retracted over 12 minutes back into the rectum. He had minor diverticula confined to the sigmoid colon with no signs of active bleeding or infection. He had a small 0.75 cm pedunculated polyp at 40 cm that is removed with a cold snare. All specimen is retrieved and no bleeding is noted. There are no other polyps noted within the colon today. The scope was removed and the patient was woken up and taken back to Same day surgery in stable condition. The patient tolerated the procedure well and there were no immediate complications. Follow up: The patient should follow up in 3 years unless they develop changes in bowel habits or other new gastrointestinal complaints.
--- NOTE | 2021-09-02 19:59 | PDOC.DSDIS_ITS ---
Discharge Plan Disposition Patient Disposition: HOME Condition: Good Discharge Details Reason For Visit: colon scope Attending Provider: Lashonda Boyle Primary Care Provider: Jl Metz Home Meds and New Rx's Prescriptions: No Action ascorbate calcium (vitamin C) 500 mg tablet 500 mg PO DAILY cholecalciferol (vitamin D3) 25 mcg (1,000 unit) capsule 25 mcg PO DAILY ibuprofen 200 MG tablet 800 mg PO TID PRN magnesium 500 mg Tablet 500 mg PO DAILY Discharge Instructions Additional Instructions: DSU Colonoscopy Post- Op Instructions Instructions for Everyone who is given An esthesia: For your safety, please do the following for the next twenty-four (24) hours: *Do Not operate a motor vehicle (car, truck, motorcycle, etc.) *Do Not drink alcoholic beverages or use any recreational drugs for the first 24 hours or while taking pain medications. The medications in your body may have a reaction that can be dangerous. *Do Not make any important decisions or sign any important papers. Findings: hemorrhoids diverticula polyps Follow up: My office will send a letter in the 2 to 3 weeks time detailing as to what type of polyp it was and when we want you to repeat your colonoscopy, Probably 3 years time. 1. No lifting over 20 pounds or strenuous activity for the first 24 hours after your procedure. After 24 hours there are no restrictions on your activity but you may feel fatigued for a few days. 2. After you arrive home you may have a light meal and return to your normal diet as you can tolerate it without feeling sick to your stomach. 3. You may have a bloated, gaseous feeling in your belly (abdomen) after a colonoscopy. Passing gas and belching will help. Walking or lying down on your left side with your knees flexed may relieve the discomfort. Call the office at [phone] (Office) or [phone] (Hospital) right away if you notice any of the following: a.Vomiting of blood or ?coffee ground stools?. b.Rectal bleeding 1Tbsp, blood clots or continuous bleeding. c.Severe belly (abdominal) pain. d.A hard distended belly (abdomen) and an inability to pass gas. 4. Please don?t expect to have a normal BM (bowel movement) for 2-3 days after your procedure. 5. If there are questions regarding the findings of your procedure, please contact your doctor 6. If you are unable to contact your doctor with a problem, contact the hospital at [phone]. 7. Continue all your regular medications unless directed otherwise. I understand the above instructions and have no questions. Signature of Patient or Adult Escort Name of Responsible Adult Escort Signature of Nurse Date/Time Activity:: see above Diet:: see above Discharge Orders Discharge Orders: Discharge Order (Routine); Ordered 09/02/21 Ordered By: Lashonda Boyle DS: Diagnosis Discharge Diagnosis (1) Tubular adenoma: Status: Acute (2) Serrated adenoma of colon: Status: Acute (3) COPD (chronic obstructive pulmonary disease): Status: Chronic (4) Diverticula of colon: Status: Acute (5) Hemorrhoid:
[2021-09-03 08:06] VITALS: BP 117/78; PULSE 59; RESP 17; TEMP 37.1; O2SAT 99
[2021-09-03] MEDS: Lactated Ringers 1,000 ML 80 ML IV (08:26)
--- NOTE | 2021-09-03 09:30 | W.ANESPRE ---
General Info Date of Service Date Performed: 09/03/21 Height: 5 ft 9 in Weight: 83 kg Body Mass Index (BMI): 27.0 Surgical Procedure: Operation Date: 09/03/21 09:35 Proposed Procedure Side Surgeon saniya Boyle DO Meds Allergies and Home Medications Allergies Allergy/AdvReac Type Severity Reaction Status Date / Time No Known Allergies Allergy Verified 09/03/21 08:12 Home Medication Medication Instructions Recorded ibuprofen 200 mg tablet 800 mg PO TID PRN 07/09/15 ascorbate calcium (vitamin C) 500 500 mg PO DAILY 05/04/20 mg tablet cholecalciferol (vitamin D3) 25 25 mcg PO DAILY 05/04/20 mcg (1,000 unit) capsule magnesium 500 mg tablet 500 mg PO DAILY 02/01/21 Current Visit Medications: Current Medications Generic Name Dose Route Start Last Admin Trade Name Freq PRN Reason Stop Dose Admin Hyoscyamine Sulfate 0.125 mg 09/02/21 19:56 Hyoscyamine 0.125 Mg Sl/Oral/Chew SL DIRECTED PRN Ringer's Solution 1,000 mls @ 80 mls/hr 09/03/21 06:00 09/03/21 08:26 IV 10/02/21 23:59 80 mls/hr INFUSION BRIGIDA Administration IV Miscellaneous Supplies 1 each 09/03/21 06:00 Iv Access IV 10/02/21 23:59 DIRECTED BRIGIDA Ondansetron HCl 4 mg 09/02/21 19:56 Ondansetron 4 Mg/2 Ml Vial IVP Q4H PRN PRN Nausea / Vomiting Sodium Chloride 0 ml 09/03/21 06:00 Normal Saline Flush 10 Ml Syr IV 10/02/21 23:59 PRN PRN Sodium Chloride 0 ml 09/03/21 06:00 Normal Saline 10 Ml Vial IJ 10/02/21 23:59 DIRECTED PRN Sterile Water 0 ml 09/03/21 06:00 Water,Injection,Sterile 10 Ml Vial IJ 10/02/21 23:59 DIRECTED PRN PFSH Active Problems Active Problems: Problem Status Onset Code Unintended weight loss R63.4 Colon polyp, hyperplastic ~10/2019 K63.5 Tubular adenoma ~10/2019 D36.9 Serrated adenoma of colon ~10/2019 D12.6 Diverticula of colon K57.30 Adenomatous polyps D36.9 Hematochezia K92.1 COPD (chronic obstructive pulmonary disease) J44.9 Medical History Medical History Cigarette smoker two packs a day or less External hemorrhoid Hemorrhoid internal and external. Internal were banded 06/15/20 Laceration Liver mass, right lobe Surgical History Surgical History History of colonoscopy (~05/2020) Tobacco Smoking/Tobacco Use Status: Current every day Tobacco Type: cigarettes Alcohol Alcohol Intake: current Alcohol intake frequency: a few times a month Alcohol type: beer and hard liquor Substance Use Substance use: Daily Substance use type: marijuana Vital Signs and Lab Results Vital Signs Most Recent Vital Signs in EMR: Most Recent Vital Signs Temp Pulse Resp BP Pulse Ox 37.1 C 59 L 17 117/78 99 09/03/21 08:06 09/03/21 08:06 09/03/21 08:06 09/03/21 08:06 09/03/21 08:06 Lab Results Blood Type / Crossmatch: No Data to Display Complete Blood Count: No Data to Display Complete Metabolic Panel: No Data to Display Liver Function Panel: No Data to Display Coagulation Panel: No Data to Display Cardiac Panel: No Data to Display Arterial Blood Gas: No Data to Display Venous Blood Gas: No Data to Display Pancreas Panel: No Data to Display Thyroid Panel: No Data to Display Infectious Disease: No Data to Display Blood Cultures: No Data to Display Toxicology Panel: No Data to Display Anesthesia Assessment and Plan Anesthesia History Personal History: No History of Anesthesia Complications Family History: No Family History of Anesthesia Complications Exercise Tolerance Exercise Tolerance: Metabolic Equivalents<4 Pertinent Negatives Pertinent Negatives: No Symptoms of GERD, No Major Cardiovascular Symptoms or Complaints, No Major Pulmonary Symptoms or Complaints and No History of CVA/TIA Cardiac & Pulmonary Exam Cardiac Exam: Normal S1/S2 Heart Sounds Pulmonary Exam: Clear Bilateral Breath Sounds Implantable Cardiac Device Does patient have a Pacemaker or an ICD?: No Airway Exam Known Difficult Airway: No Mallampati Class: 3 Mouth Opening: Normal (> 3cm) Thyromental Distance: Greater than 3 cm Facial Hair: Full Duran Neck Range of Motion: Full ROM Neck Circumference: Normal Teeth Condition: Generalized Poor Dentition and Loose or Chipped Airway Comments: Multiple missing teeth, top front tooth loose ASA Classification ASA Score: ASA 2 Emergency Case?: No NPO Status NPO Status: NPO Clears >2 hours, Solids >8 hours Anesthesia Plan Resuscitation Status: Full Code Anesthesia Technique: General Anesthesia Airway Planned: Natural Airway Monitors Used: Standard Monitors
[2021-09-03 09:35] VITALS: BMI 27.0
--- NOTE | 2021-09-03 10:00 | BOWEL_PTH ---
PATIENT: Jeferson Zamudio LOC: [facility] U#:[id number] AGE/SX: 51/M ROOM: RE09/03/[address]: Lashonda Boyle : 1970 BED: DIS: 09/03/2021 SPEC #: [id number] RECD: 09/03/21 12:08 STATUS: JEANNA REQ #: [id number] CONRAD: 09/03/21 10:[address]: Lashonda Boyle DEPT: Surgical Specimen RECD BY: Toyin Oconnell ENTERED: 09/03/21 12:09 SP TYPE: Bowel OTHR DR: Jl Metz, JOINT MACHINE OPERATOR Tissues: 1 - BIOPSY BOWEL Procedures: GROSS AND MICRO LEVEL 4 Comments: [id number]
[2021-09-03 10:25] VITALS: BP 117/79; PULSE 63; RESP 18; TEMP 36.7; O2SAT 99
--- NOTE | 2021-09-03 10:41 | W.ANESPOSTOP ---
Postoperative Evaluation Date, Time and Location Date Performed: 09/03/21 Time Performed: 10:41 Patient Location: Day Surgery Unit Vital Signs Most Recent Imported Vital Signs: Most Recent Vital Signs Temp Pulse Resp BP Pulse Ox 36.7 C 63 18 117/79 99 09/03/21 10:25 09/03/21 10:25 09/03/21 10:25 09/03/21 10:25 09/03/21 10:25 Pain Score Most Recent Pain Score: Most Recent Pain Score Pain Level 0 09/03/21 10:25 Assessment Mental Status: Awake (Alert & Oriented to Patient Baseline) Airway and Respiratory Function: Patent airway with normal (patient baseline) respiratory exam Cardiovascular Function: Hemodynamically Stable Hydration Status: Adequately Hydrated Nausea & Vomiting: No Nausea or Vomiting Pain: Pt. Denies Any Pain Peripheral Nerve Block: Patient did not receive a nerve block
[2021-09-03 10:46] VITALS: BP 103/77; PULSE 57; RESP 18; TEMP 36.7; O2SAT 99
== END 2021-09-03 11:03 | disposition home or self-care (01) ==
PROVIDERS: PCP Nurse Practitioner Family; Visit Provider Surgery
PROC: 0DJD8ZZ Inspection of Lower Intestinal Tract, Via Natural or Artificial Opening Endoscopic (ICD-10-PCS; CPT 45378; principal; 2021-09-03 09:30)
DX: Z12.11 Encounter for screening for malignant neoplasm of colon (principal); Z86.010 Personal history of colon polyps; J44.9 Chronic obstructive pulmonary disease, unspecified; F17.210 Nicotine dependence, cigarettes, uncomplicated; K63.5 Polyp of colon; K57.30 Diverticulosis of large intestine without perforation or abscess without bleeding; K64.1 Second degree hemorrhoids
CPT/HCPCS: 45385; 88305

== ENCOUNTER 2021-10-08 14:04 | Outpatient (CLI) | payer OTHER, SELFPAY ==
--- NOTE | 2021-10-08 13:30 | DI.RAD_ITS ---
Exam(s) XR SHOULDER LT COMPLETE 2+V EXAM: XR SHOULDER LT COMPLETE 2+V CLINICAL HISTORY: LEFT SHOULDER PAIN. TECHNIQUE: 2D digital imaging was performed. COMPARISON: No exams were available for comparison FINDINGS: Two views No fracture nor dislocation nor significant soft tissue calcifications. Subacromial space unremarkab le. No degenerative changes glenohumeral AC joints. Bone density normal. No osseous lesions. IMPRESSION: No significant findings. DATA REPOSITORY: RADIATION DOSE DELIVERED:
== END 2021-10-08 14:05 | disposition home or self-care (01) ==
LOC: DIORS 14:05
PROVIDERS: PCP Nurse Practitioner Family; Referring Provider Nurse Practitioner Family; Visit Provider Student in an Organized Health Care Education/Training Program
DX: M25.512 Pain in left shoulder (principal)
CPT/HCPCS: 73030

== ENCOUNTER → 2022-01-30 10:46 | Outpatient (CLI) | payer OTHER, SELFPAY ==
--- NOTE | 2022-01-30 09:45 | DI.RAD_ITS ---
Exam(s) XR SHOULDER RT COMPLETE 2+V EXAM: XR SHOULDER RT COMPLETE 2+V CLINICAL HISTORY: right shoulder pain.[id number]. TECHNIQUE: 2D digital imaging was performed of the right shoulder. Five images were obtained. AP, Grashey, Y-view and axillary views were obtained. COMPARISON: CR XR CHEST 2V PA LATERAL from 09/14/2019 FINDINGS: BONES: No acute fracture is present. No bony destructive lesion is seen. JOINTS: No dislocation present. Mild degenerative changes are seen at the AC joint. SOFT TISSUE: Normal. 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 DATA REPOSITORY: RADIATION DOSE DELIVERED:
== END ==
PROVIDERS: PCP Nurse Practitioner Family; Visit Provider Nurse Practitioner Family
DX: M19.011 Primary osteoarthritis, right shoulder (principal)
CPT/HCPCS: 73030

== ENCOUNTER 2022-02-03 06:07 | Day surgery (SDC) | payer OTHER, SELFPAY ==
[2022-02-03 06:26] VITALS: BP 127/76; PULSE 62; RESP 16; TEMP 36.7; O2SAT 100
--- NOTE | 2022-02-03 06:58 | W.ANESPRE ---
General Info Date of Service Date Performed: 02/03/22 Height: 5 ft 9 in Weight: 86.4 kg Body Mass Index (BMI): 28.1 Surgical Procedure: Operation Date: 02/03/22 07:40 Proposed Procedure Side Surgeon p Excision & Fulgration of Genital Warts Leon Ryder MD Meds Allergies and Home Medications Allergies Allergy/AdvReac Type Severity Reaction Status Date / Time No Known Allergies Allergy Verified 01/30/22 09:04 Home Medication Medication Instructions Recorded ibuprofen 200 mg tablet 800 mg PO TID PRN 07/09/15 ascorbate calcium (vitamin C) 500 500 mg PO DAILY 05/04/20 mg tablet cholecalciferol (vitamin D3) 25 25 mcg PO DAILY 05/04/20 mcg (1,000 unit) capsule magnesium 500 mg tablet 500 mg PO DAILY 02/01/21 lidocaine 5 % topical patch 1 patch topical DAILY #30 ea 01/29/22 Current Visit Medications: Current Medications Generic Name Dose Route Start Last Admin Trade Name Freq PRN Reason Stop Dose Admin Clindamycin HCl 300 mg 02/03/22 06:00 Clindamycin 300 Mg Cap PO 02/03/22 16:00 PREOP [facility] Ringer's Solution 1,000 mls @ 80 mls/hr 02/03/22 06:00 IV 02/03/22 23:59 INFUSION [facility] IV Miscellaneous Supplies 1 each 02/03/22 06:00 Iv Access IV 02/03/22 23:59 DIRECTED BRIGIDA Sodium Chloride 0 ml 02/03/22 06:00 Normal Saline Flush 10 Ml Syr IV 02/03/22 23:59 PRN PRN Sodium Chloride 0 ml 02/03/22 06:00 Normal Saline 10 Ml Vial IJ 02/03/22 23:59 DIRECTED PRN Sterile Water 0 ml 02/03/22 06:00 Water,Injection,Sterile 10 Ml Vial IJ 02/03/22 23:59 DIRECTED PRN PFSH Active Problems Active Problems: Problem Status Onset Code 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 Internal were banded 06/15/20 Medical History Comments:: 02/03/22 - Smoked 5 cigarettes before admission to pre-op Surgical History Surgical History History of colonoscopy (~05/2020) 08/2021 Tobacco Smoking/Tobacco Use Status: Current every day Tobacco Type: cigarettes Alcohol Alcohol Intake: current Alcohol intake frequency: a few times a month Alcohol type: beer and hard liquor Substance Use Substance use: Daily Substance use type: marijuana Vital Signs and Lab Results Vital Signs Most Recent Vital Signs in EMR: Most Recent Vital Signs Temp Pulse Resp BP Pulse Ox 36.7 C 62 16 127/76 100 02/03/22 06:26 02/03/22 06:26 02/03/22 06:26 02/03/22 06:26 02/03/22 06:26 Lab Results Blood Type / Crossmatch: No Data to Display Complete Blood Count: No Data to Display Complete Metabolic Panel: No Data to Display Liver Function Panel: No Data to Display Coagulation Panel: No Data to Display Cardiac Panel: No Data to Display Arterial Blood Gas: No Data to Display Venous Blood Gas: No Data to Display Pancreas Panel: No Data to Display Thyroid Panel: No Data to Display Infectious Disease: No Data to Display Blood Cultures: No Data to Display Toxicology Panel: No Data to Display Imaging and Studies Imaging and Studies Study information below may be from another EMR and interpreted by another provider. Please see original notes in EMR for more complete details. EKG Summary: 02/01/2022: Conclusion Sinus bradycardia...rate< 60 ST elev, probable normal early repol pattern...ST elevation, age<55 Anesthesia Assessment and Plan Anesthesia History Personal History: No History of Anesthesia Complications Family History: No Family History of Anesthesia Complications Exercise Tolerance Exercise Tolerance: Metabolic Equivalents>4 Pertinent Negatives Pertinent Negatives: No Symptoms of GERD and No Major Cardiovascular Symptoms or Complaints Cardiac & Pulmonary Exam Cardiac Exam: Normal S1/S2 Heart Sounds Pulmonary Exam: Clear Bilateral Breath Sounds Implantable Cardiac Device Does patient have a Pacemaker or an ICD?: No Airway Exam Known Difficult Airway: No Mallampati Class: 3 Mouth Opening: Normal (> 3cm) Thyromental Distance: Greater than 3 cm Neck Range of Motion: Full ROM Neck Circumference: Normal Teeth Condition: Generalized Poor Dentition and Loose or Chipped Airway Comments: Multiple missing teeth, top front tooth loose ASA Classification ASA Score: ASA 2 Emergency Case?: No NPO Status NPO Status: NPO Clears >2 hours, Solids >8 hours Anesthesia Plan Resuscitation Status: Full Code Anesthesia Technique: General Anesthesia Airway Planned: Natural Airway Monitors Used: Standard Monitors
[2022-02-03 07:01] VITALS: BMI 28.1
[2022-02-03] MEDS: Lactated Ringers 1,000 ML 80 ML IV (07:01)
[2022-02-03] MEDS: Clindamycin 300 MG CAP PO (07:02)
== END 2022-02-03 06:08 | disposition home or self-care (01) ==
PROVIDERS: PCP Nurse Practitioner Family; Visit Provider Urology
DX: Z53.9 Procedure and treatment not carried out, unspecified reason (principal)

== ENCOUNTER 2022-02-10 09:07 | Day surgery (SDC) | payer OTHER, SELFPAY ==
[2022-02-10 09:25] VITALS: BP 127/81; PULSE 60; RESP 16; TEMP 36.8; O2SAT 100
[2022-02-10] MEDS: Lactated Ringers 1,000 ML 80 ML IV (09:48)
[2022-02-10] MEDS: Clindamycin 300 MG CAP PO (09:54)
--- NOTE | 2022-02-10 09:56 | HPE_ITS ---
Date of service: 02/10/22 Time of Service: 11:08 Assessment and Plan Assessment and plan (1) Genital warts due to HPV (human papillomavirus): Status: Acute Assessment and plan: For surgical excision of the visible lesions and fulguration of small or lesions. History of Present Illness History of Present Illness Chief Complaint: Condyloma Narrative: This is a 51-year-old gentleman who has multiple areas of condyloma on the penis and the scrotum. He has had some of the smaller areas treated with cryotherapy. He presents now for excision of the larger areas and fulguration of the smaller residual areas. Review of Systems Narrative: No fevers or chills No vision change or dysphasia No diabetes or thyroid Hx COPD. No hemoptysis No chest pain or palpitations No nausea, vomiting, hepatitis, ulcers, jaundice, diarrhea or constipation No seizures, strokes or peripheral neuropathy No bleeding disorders or anemia No gout PFSH All Active Problems Genital warts due to HPV (human papillomavirus) (Acute) Liver mass, right lobe (Acute) Cigarette smoker two packs a day or less (Acute) Tendonitis of left rotator cuff (Acute) Depo-Medrol injection: 10/08/21 Rotator cuff impingement syndrome of left shoulder (Acute) Bursitis of left shoulder (Acute) Colon polyp, hyperplastic (Acute ~10/2019) 11/17/19 Dr. Tico Boyle, 3 hyperplastic polyps, repeat colo 6 mo-1 year Tubular adenoma (Acute ~10/2019) 08/202111/17/19 Dr. Tico Boyle-2 TA; 1 showing high-grade dysplasia, repeat colo 6 mo- 1 year scope May 2020 shows no recurrence. Repeat 1 yrs time. Serrated adenoma of colon (Acute ~10/2019) 11/17/19 Dr. Tico Boyle 2 sessile serrated adenoma, repeat colo 6 mo-1 year Diverticula of colon (Acute) Adenomatous polyps (Acute) Hematochezia (Acute) COPD (chronic obstructive pulmonary disease) (Chronic) Medical History External hemorrhoid Hemorrhoid internal and external. Internal were banded 06/15/20 Surgical History History of colonoscopy (~05/2020) 08/2021 Social History Smoking/Tobacco Use Status: Current every day Tobacco Type: cigarettes Tobacco: How many years used: 38 Smoking risk assessment performed?: Yes Alcohol Intake: current Alcohol Intake frequency: a few times a month Alcohol type: beer and hard liquor Drug use: Daily Substance use type: marijuana Current gender identity: male Do you feel safe at home: Yes Do you feel safe in your relationship?: Yes Meds Allergies and Home Medications Allergies Allergy/AdvReac Type Severity Reaction Status Date / Time No Known Allergies Allergy Verified 02/10/22 09:25 Home Medications Medication Instructions Recorded Confirmed Type ibuprofen 200 mg tablet 800 mg PO TID PRN 07/09/15 02/10/22 History ascorbate calcium (vitamin C) 500 500 mg PO DAILY 05/04/20 02/10/22 History mg tablet cholecalciferol (vitamin D3) 25 25 mcg PO DAILY 05/04/20 02/10/22 History mcg (1,000 unit) capsule magnesium 500 mg tablet 500 mg PO DAILY 02/01/21 02/10/22 History lidocaine 5 % topical patch 1 patch topical DAILY #30 ea 01/29/22 02/10/22 Rx Exam Const General: cooperative Neck Neck: supple Resp Effort & Inspection: normal respiratory effort Auscultation: clear to auscultation bilaterally Cardio Rate: regular rate Rhythm: regular rhythm GI Palpation: soft and no masses Other: Multiple condyloma penile shaft and scrotum Results Last Vital Signs Temp 36.8 C 02/10/22 09:25 Pulse 60 02/10/22 09:25 Resp 16 02/10/22 09:25 BP 127/81 02/10/22 09:25 Pulse Ox 100 02/10/22 09:25
--- NOTE | 2022-02-10 10:05 | W.ANESPRE ---
General Info Date of Service Date Performed: 02/10/22 Height: 5 ft 9 in Weight: 86.5 kg Body Mass Index (BMI): 28.1 Surgical Procedure: Operation Date: 02/10/22 11:25 Proposed Procedure Side Surgeon p Excision and Fulgration of Genital Warts Leon Ryder MD Meds Allergies and Home Medications Allergies Allergy/AdvReac Type Severity Reaction Status Date / Time No Known Allergies Allergy Verified 02/10/22 09:25 Home Medication Medication Instructions Recorded ibuprofen 200 mg tablet 800 mg PO TID PRN 07/09/15 ascorbate calcium (vitamin C) 500 500 mg PO DAILY 05/04/20 mg tablet cholecalciferol (vitamin D3) 25 25 mcg PO DAILY 05/04/20 mcg (1,000 unit) capsule magnesium 500 mg tablet 500 mg PO DAILY 02/01/21 lidocaine 5 % topical patch 1 patch topical DAILY #30 ea 01/29/22 Current Visit Medications: Current Medications Generic Name Dose Route Start Last Admin Trade Name Freq PRN Reason Stop Dose Admin Clindamycin HCl 300 mg 02/10/22 06:00 02/10/22 09:54 Clindamycin 300 Mg Cap PO 02/10/22 18:00 300 mg PREOP BRIGIDA Administration Ringer's Solution 1,000 mls @ 80 mls/hr 02/10/22 06:00 02/10/22 09:48 IV 03/09/22 23:59 80 mls/hr INFUSION BRIGIDA Administration IV Miscellaneous Supplies 1 each 02/10/22 06:00 Iv Access IV 03/09/22 23:59 DIRECTED BRIGIDA Sodium Chloride 0 ml 02/10/22 06:00 Normal Saline Flush 10 Ml Syr IV 03/09/22 23:59 PRN PRN Sodium Chloride 0 ml 02/10/22 06:00 Normal Saline 10 Ml Vial IJ 03/09/22 23:59 DIRECTED PRN Sterile Water 0 ml 02/10/22 06:00 Water,Injection,Sterile 10 Ml Vial IJ 03/09/22 23:59 DIRECTED PRN PFSH Active Problems Active Problems: Problem Status Onset Code 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 Internal were banded 06/15/20 Medical History Comments:: 02/10/22 - Smoked 10 cigarettes before admission to pre-op Surgical History Surgical History History of colonoscopy (~05/2020) 08/2021 Tobacco Smoking/Tobacco Use Status: Current every day Tobacco Type: cigarettes Alcohol Alcohol Intake: current Alcohol intake frequency: a few times a month Alcohol type: beer and hard liquor Substance Use Substance use: Daily Substance use type: marijuana Vital Signs and Lab Results Vital Signs Most Recent Vital Signs in EMR: Most Recent Vital Signs Temp Pulse Resp BP Pulse Ox 36.8 C 60 16 127/81 100 02/10/22 09:25 02/10/22 09:25 02/10/22 09:25 02/10/22 09:25 02/10/22 09:25 Lab Results Blood Type / Crossmatch: No Data to Display Complete Blood Count: No Data to Display Complete Metabolic Panel: No Data to Display Liver Function Panel: No Data to Display Coagulation Panel: No Data to Display Cardiac Panel: No Data to Display Arterial Blood Gas: No Data to Display Venous Blood Gas: No Data to Display Pancreas Panel: No Data to Display Thyroid Panel: No Data to Display Infectious Disease: No Data to Display Blood Cultures: No Data to Display Toxicology Panel: No Data to Display Imaging and Studies Imaging and Studies Study information below may be from another EMR and interpreted by another provider. Please see original notes in EMR for more complete details. EKG Summary: 02/01/2022: Conclusion Sinus bradycardia...rate< 60 ST elev, probable normal early repol pattern...ST elevation, age<55 Anesthesia Assessment and Plan Anesthesia History Personal History: No History of Anesthesia Complications Family History: No Family History of Anesthesia Complications Exercise Tolerance Exercise Tolerance: Metabolic Equivalents>4 Pertinent Negatives Pertinent Negatives: No Symptoms of GERD, No Major Cardiovascular Symptoms or Complaints and No Major Pulmonary Symptoms or Complaints Cardiac & Pulmonary Exam Cardiac Exam: Normal S1/S2 Heart Sounds Pulmonary Exam: Clear Bilateral Breath Sounds Implantable Cardiac Device Does patient have a Pacemaker or an ICD?: No Airway Exam Known Difficult Airway: No Mallampati Class: 3 Mouth Opening: Normal (> 3cm) Thyromental Distance: Greater than 3 cm Neck Range of Motion: Full ROM Neck Circumference: Normal Teeth Condition: Generalized Poor Dentition and Loose or Chipped Airway Comments: Multiple missing teeth, top front tooth loose ASA Classification ASA Score: ASA 2 Emergency Case?: No NPO Status NPO Status: NPO Clears >2 hours, Solids >8 hours Anesthesia Plan Resuscitation Status: Full Code Anesthesia Technique: General Anesthesia Airway Planned: Natural Airway Monitors Used: Standard Monitors
[2022-02-10 10:08] VITALS: BMI 28.1
[2022-02-10] MEDS: Bupivacaine 0.25% Pres-Free W/EPI 30 ML VIAL (11:25)
[2022-02-10] MEDS: Bacitracin 30 GM TUBE (11:29)
--- NOTE | 2022-02-10 11:31 | SKI_PTH ---
PATIENT: Jeferson Zamudio LOC: [facility] U#:[id number] AGE/SX: 51/M ROOM: RE02/10/[address]: Leon Ryder MD : 1970 BED: DIS: 02/10/2022 SPEC #: [id number] RECD: 02/10/22 13:07 STATUS: JEANNA RE #: [id number] CONRAD: 02/10/22 11:[address]: Leon Ryder DEPT: Surgical Specimen RECD BY: Toyin Oconnell ENTERED: 02/10/22 13:08 SP TYPE: RAHEEL CARTER DR: Jl Metz, SOLID SURFACE FABRICATOR Tissues: 1 - SKIN BIOPSY(SHAVE/PUNCH) Procedures: SKIN LEVEL 4 Comments: [id number]
--- NOTE | 2022-02-10 11:53 | W.PM.DSUDISC ---
Date of service: 02/10/22 Time of Service: 11:53 Discharge Plan Disposition Patient Disposition: Home Condition: Good Discharge Details Reason For Visit: Condyloma Attending Provider: Leon Ryder Primary Care Provider: Jl Metz Home Meds and New Rx's Prescriptions: No Action ascorbate calcium (vitamin C) 500 mg tablet 500 mg PO DAILY cholecalciferol (vitamin D3) 25 mcg (1,000 unit) capsule 25 mcg PO DAILY lidocaine 5 % adhesive patch,medicated 1 patch topical DAILY Qty: 30 3RF Rx Instructions: leave on most painful area for up to 12 hrs ibuprofen 200 MG tablet 800 mg PO TID PRN magnesium 500 mg Tablet 500 mg PO DAILY Discharge Instructions Additional Instructions: Followup 1 to 2 weeks for wound check/pathology apply antibiotic ointment to incision sites until healed OK to shower Activity:: Activity as Tolerated Shower/Bathe:: 24 hours Diet:: As Tolerated DS: Diagnosis Discharge Diagnosis (1) Genital warts due to HPV (human papillomavirus): Status: Acute
[2022-02-10 11:55] VITALS: BP 101/66; PULSE 55; RESP 16; TEMP 36; O2SAT 99
--- NOTE | 2022-02-10 11:59 | W.PM.DSUDISC ---
Date of service: 02/10/22 Time of Service: 12:03 Discharge Plan Disposition Patient Disposition: Home Condition: Good Discharge Details Reason For Visit: Condyloma Attending Provider: Leon Ryder Primary Care Provider: Jl Metz Home Meds and New Rx's Prescriptions: New hydrocodone-acetaminophen 5-325 mg tablet 1 - 2 tab PO Q6H MDD 8 PRN (Reason: pain) Qty: 20 0RF No Action ascorbate calcium (vitamin C) 500 mg tablet 500 mg PO DAILY cholecalciferol (vitamin D3) 25 mcg (1,000 unit) capsule 25 mcg PO DAILY lidocaine 5 % adhesive patch,medicated 1 patch topical DAILY Qty: 30 3RF Rx Instructions: leave on most painful area for up to 12 hrs ibuprofen 200 MG tablet 800 mg PO TID PRN magnesium 500 mg Tablet 500 mg PO DAILY Discharge Instructions Additional Instructions: Followup 1 to 2 weeks for wound check/pathology apply bacitracin ointment to incision sites 3 times/day until healed OK to shower Activity:: Activity as Tolerated Shower/Bathe:: 24 hours Diet:: As Tolerated Discharge Orders Discharge Orders: Discharge Order (Routine); Ordered 02/10/22 Ordered By: Leon Ryder DS: Diagnosis Discharge Diagnosis (1) Genital warts due to HPV (human papillomavirus): Status: Acute
--- NOTE | 2022-02-10 12:04 | W.PM.OP ---
Date of service: 02/10/22 Time of Service: 12:04 Operative Note Operative Note DATE OF PROCEDURE: 02/10/22 PRE-OP DIAGNOSIS: Condyloma POST-OP DIAGNOSIS: same PROCEDURE: Excision and cauterization of condyloma SURGEON: Leon Ryder ANESTHESIA TYPE: Local By Surgeon and General:No Airway Refer to Anesthesia Record ESTIMATED BLOOD LOSS: 10 PATHOLOGY: other (condyloma) COMPLICATIONS: None Patient was transported to: same day Patient's condition: stable Indications: This is a 51-year-old gentleman who has a history of multiple visible condyloma along the shaft of the penis and on the scrotum. He has had some of the smaller areas treated with cryotherapy in the office. He comes in now to have the larger areas resected and cauterized. Findings: Multiple large condyloma on the penile shaft and scrotum Procedure Description: The patient was brought to the operating room on 02/10/2022. He was given preoperative antibiotics. After successful induction of general anesthesia, he was placed in the supine position. His genitalia was prepped. The condyloma were visualized and we performed a local block around each of the condyloma using quarter percent Marcaine with epinephrine. The 3 larger condyloma were then excised and sent to pathology for permanent section. The resection site was then cauterized using a hand-held Bovie. The penile skin was then reapproximated using a subcuticular 4-0 Vicryl suture. The remaining visible condyloma on the penile shaft and scrotum were then treated with a hand-held Bovie. Once all visible lesions had been treated, we applied the Dermabond to the incision sites. We then placed bacitracin ointment on the lesions. The patient tolerated the procedure well with no complications.
[2022-02-10 12:20] VITALS: BP 96/54; PULSE 53; RESP 18; TEMP 36; O2SAT 100
--- NOTE | 2022-02-10 12:20 | W.ANESPOSTOP ---
Postoperative Evaluation Date, Time and Location Date Performed: 02/10/22 Time Performed: 12:20 Patient Location: Day Surgery Unit Vital Signs Most Recent Imported Vital Signs: Most Recent Vital Signs Temp Pulse Resp BP Pulse Ox 36 C L 55 L 16 101/66 99 02/10/22 11:55 02/10/22 11:55 02/10/22 11:55 02/10/22 11:55 02/10/22 11:55 Assessment Mental Status: Awake (Alert & Oriented to Patient Baseline) Airway and Respiratory Function: Patent airway with normal (patient baseline) respiratory exam Cardiovascular Function: Hemodynamically Stable Hydration Status: Adequately Hydrated Nausea & Vomiting: No Nausea or Vomiting Pain: Pt. Denies Any Pain Peripheral Nerve Block: Patient did not receive a nerve block
== END 2022-02-10 12:45 | disposition home or self-care (01) ==
PROVIDERS: PCP Nurse Practitioner Family; Visit Provider Urology
PROC: (CPT 54060; principal; 2022-02-10 11:15)
DX: A63.0 Anogenital (venereal) warts (principal)
CPT/HCPCS: 54060; 17110; 88305; J1100; J1885; J2405; J2704

== ENCOUNTER 2022-03-06 02:11 | Outpatient (CLI) | payer OTHER, SELFPAY ==
--- NOTE | 2022-03-06 09:45 | DI.MRI_ITS ---
Exam(s) MR UPPER JOINT RT WO EXAM: MR UPPER JOINT RT WO CLINICAL HISTORY: traumatic weakness, pain,TRUMATIC TEAR RT ROTATOR CUFF,S46.011A. TECHNIQUE: Multiplanar multisequence MRI was performed. COMPARISON: CR XR SHOULDER RT COMPLETE 2+V from 01/30/2022 FINDINGS: BONES: There is no fracture or contusion pattern. JOINTS: Moderate degenerative changes are seen at the acromioclavicular joint. Degenerative changes are seen in the greater tuberosity. The glenohumeral joint is normal. TENDONS: Supraspinatus: There is a partial tear of the supraspinatus tendon at its insertion site. There is t endinosis present. Infraspinatus: Unremarkable. Subscapularis: There is tendinosis of the subscapularis. There is also hyperintense signal seen in t he subscapularis tendon near its insertion site consistent with an intrasubstance tear. Teres Minor: Unremarkable. Biceps and [place]: Unremarkable. MUSCLES: Unremarkable. GLENOID LABRUM: Unremarkable on this noncontrast examination. SOFT TISSUES: Unremarkable. LIGAMENTS: Unremarkable. OTHER: Subacromial and subdeltoid bursae are unremarkable. IMPRESSION: 1. Partial tear of the supraspinatus tendon at its insertion site onto the greater tuberosity. Supra spinatus tendinosis. 2. Partial intrasubstance tear of the subscapularis tendon. 3. Moderate degenerative changes of the acromioclavicular joint. DATA REPOSITORY:
== END 2022-03-06 02:31 ==
LOC: DI 02:13
PROVIDERS: PCP Nurse Practitioner Family; Visit Provider Student in an Organized Health Care Education/Training Program
DX: S46.011A Strain of muscle(s) and tendon(s) of the rotator cuff of right shoulder, initial encounter (principal); M67.813 Other specified disorders of tendon, right shoulder; M19.011 Primary osteoarthritis, right shoulder; X58.XXXA Exposure to other specified factors, initial encounter
CPT/HCPCS: 73221

== ENCOUNTER 2022-08-12 06:54 | Emergency (ER) | payer OTHER, SELFPAY ==
[2022-08-12 07:00] VITALS: BP 120/67; PULSE 86; RESP 18; TEMP 38.2; O2SAT 99
--- NOTE | 2022-08-12 07:00 | RT.EKG_ITS ---
APPROVED REPORT Exam: Resting ECG Reason for Exam: SOB Patient Location: E HR:83 bpm ECG Measurements Heart Rate 83 AXIS WI 147 P 1 QRSd 89 QRS 68 QT 341 T 46 QTc 402 Conclusion Sinus rhythm...normal P axis, V-rate 60- 99
--- NOTE | 2022-08-12 07:00 | DI.RAD_ITS ---
Exam(s) XR CHEST 2V PA LATERAL EXAM: XR CHEST 2V PA LATERAL CLINICAL HISTORY: fever, chills TECHNIQUE: 2D digital imaging was performed of the chest. Two images were obtained. PA and lateral views were obtained. COMPARISON: CR XR CHEST 2V PA LATERAL from 09/14/2019 FINDINGS: MEDIASTINUM: Normal. HEART: Normal. PULMONARY VASCULATURE: Normal. LUNGS: There is an increased opacity in the medial aspect of the left lung base. This appears to lie in the left lower lobe posteriorly. The lungs are hyperinflated suggesting underlying COPD. PLEURAL SPACE: No pleural effusion or pneumothorax. BONE:Within normal limits for the patient's age. There is a mild pectus excavatum deformity. OTHER FINDINGS:Normal. IMPRESSION: Left basilar opacity best appreciated on the AP view in the medial aspect of the left lung base. Thi s may represent a pneumonia. A repeat chest x-ray is recommended in 3-4 weeks to document complete r esolution and to exclude other etiologies such as mass. If the findings is not resolved on the repea t chest x-ray, CT scan of the chest should be obtained. Unexpected findings DATA REPOSITORY: RADIATION DOSE DELIVERED:
--- NOTE | 2022-08-12 07:13 | ED.GENADUL_ITS ---
Discharge Plan Disposition Patient Disposition: Home Condition: Stable Discharge Details Clinical Impression: COPD (chronic obstructive pulmonary disease), Pneumonia Primary Care Provider: Jl Metz ED Provider: Shaka Mathews Home Meds and New Rx's Prescriptions: New prednisone 20 mg tablet 60 mg PO DAILY 4 Days Qty: 12 0RF levofloxacin 750 mg tablet 750 mg PO DAILY Qty: 5 0RF Continued ascorbate calcium (vitamin C) 500 mg tablet 500 mg PO DAILY cholecalciferol (vitamin D3) 25 mcg (1,000 unit) capsule 25 mcg PO DAILY lidocaine 5 % adhesive patch,medicated 1 patch topical DAILY Qty: 30 3RF Rx Instructions: leave on most painful area for up to 12 hrs ibuprofen 200 MG tablet 800 mg PO TID PRN magnesium 500 mg Tablet 500 mg PO DAILY Discharge Instructions Instructions: Pneumonia (ED) Additional Instructions: Take the prednisone and levofloxacin as prescribed follow up with your primary care provider within 1 week. You should have a follow up xray in 3-4 weeks to make sure the lung infection has resolved if you feel more ill, have worsening shortness of breath or severe pain return to the emergency department Discharge Data Discharge Date/Time-TO BE ENTERED AT DEPARTURE: 08/12/22 10:03 Medical Decision Making Medical Records Medical records reviewed: Yes I reviewed the patient's medical records. Lab Data Lab results reviewed: Yes I reviewed the patient's lab results. Lab results narrative: Patient's white blood cell count is 29,000 with a left shift. His lactate is 1.6. ECG Data Attestation: I personally reviewed and interpreted this ECG (s) as follows: (NSR 85, nl intervals, no ST-T changes) HPI General Date/Time Provider Initiated Documentation: 08/12/22 07:00 . HPI Narrative: This 52-year-old male patient with a smoking history presents with a chief complaint of URI symptoms that began last , 5 days ago. Patient states he began with a headache and sore throat and this progressed into cough, congestion, and runny nose. He reports shaking chills yesterday. He states that he has been having chest pain when he coughs, In nature. He describes mild difficulty breathing. He has no GI or symptoms. There is no pedal edema or calf pain. Reports no history of asthma, COPD, or emphysema. The patient reports that he is vaccinated for both influenza and COVID. Related Data Home Medications Medication Instructions Recorded Confirmed ibuprofen 200 mg tablet 800 mg PO TID PRN 07/09/15 03/12/22 ascorbate calcium (vitamin C) 500 500 mg PO DAILY 05/04/20 03/12/22 mg tablet cholecalciferol (vitamin D3) 25 25 mcg PO DAILY 05/04/20 03/12/22 mcg (1,000 unit) capsule magnesium 500 mg tablet 500 mg PO DAILY 02/01/21 03/12/22 lidocaine 5 % topical patch 1 patch topical DAILY #30 ea 01/29/22 03/12/22 levofloxacin 750 mg tablet 750 mg PO DAILY #5 tabs 08/12/22 prednisone 20 mg tablet 60 mg PO DAILY 4 days #12 tabs 08/12/22 Previous Rx's Medication Instructions Recorded lidocaine 5 % topical patch 1 patch topical DAILY #30 ea 01/29/22 levofloxacin 750 mg tablet 750 mg PO DAILY #5 tabs 08/12/22 prednisone 20 mg tablet 60 mg PO DAILY 4 days #12 tabs 08/12/22 Allergies Allergy/AdvReac Type Severity Reaction Status Date / Time No Known Allergies Allergy Verified 03/12/22 09:39 General Stated Complaint: GenMedical GEMA: 3 Review of Systems Constitutional Constitutional: Reports chills, Reports fever(s), Reports headache(s) and Denies weakness Eyes Eyes: Denies diplopia and Reports other (no redness) ENT Ears, Nose, Mouth, and Throat: Denies otalgia, Reports headache(s), Reports nasal congestion, Reports nasal discharge, Denies neck pain and Reports sore throat Cardiovascular Cardiovascular: Reports chest pain (with cough), Denies palpitations and Reports dyspnea (vague) Respiratory Respiratory: Reports cough and Reports dyspnea (vague) Gastrointestinal Gastrointestinal: Denies abdominal pain, Denies diarrhea, Denies nausea and Denies vomiting Genitourinary Genitourinary: Denies difficulty urinating and Denies dysuria Musculoskeletal Musculoskeletal: Denies myalgias, Denies muscle weakness, Denies neck pain, Denies numbness and Reports other (edema) Integumentary/Breasts Skin/Breast: Denies change in pigmentation and Denies rash Neurologic Neurologic: Reports headache(s), Denies numbness and Denies weakness Endocrine Endocrine: Denies palpitations PFSH All Active Problems (Updated 08/12/22 @ 09:44 by Shaka Mathews MD) Pneumonia (Acute) Traumatic tear of right rotator cuff (Acute ~12/2021) Genital warts due to HPV (human papillomavirus) (Acute) Liver mass, right lobe (Acute) Cigarette smoker two packs a day or less (Acute) Tendonitis of left rotator cuff (Acute) Depo-Medrol injection: 10/08/21 Rotator cuff impingement syndrome of left shoulder (Acute) Bursitis of left shoulder (Acute) Colon polyp, hyperplastic (Acute ~10/2019) 11/17/19 Dr. Tico Boyle, 3 hyperplastic polyps, repeat colo 6 mo-1 year Tubular adenoma (Acute ~10/2019) 08/202111/17/19 Dr. Tico Boyle-2 TA; 1 showing high-grade dysplasia, repeat colo 6 mo- 1 year scope May 2020 shows no recurrence. Repeat 1 yrs time. Serrated adenoma of colon (Acute ~10/2019) 11/17/19 Dr. Tico Boyle 2 sessile serrated adenoma, repeat colo 6 mo-1 year Diverticula of colon (Acute) Adenomatous polyps (Acute) Hematochezia (Acute) COPD (chronic obstructive pulmonary disease) (Chronic) Medical History External hemorrhoid Hemorrhoid internal and external. Internal were banded 06/15/20 Surgical History History of colonoscopy (~05/2020) 08/2021 Social History Smoking/Tobacco Use Status: Current every day Tobacco Type: cigarettes Tobacco: How many years used: 38 Smoking risk assessment performed?: Yes Alcohol Intake: current Alcohol Intake frequency: a few times a month Alcohol type: beer and hard liquor Drug use: Daily Substance use type: marijuana Current gender identity: male Do you feel safe at home: Yes Do you feel safe in your relationship?: Yes Additional Social history: unable to assess [facility] Exam Const General: no acute distress, well developed, well groomed and not in acute distress Nutritional Appearance: well nourished Orientation: alert and oriented x3 HENMT Head: normocephalic and atraumatic Ears: external ears normal Mouth: oropharynx normal and moist mucous membranes Throat: posterior oropharynx normal Eyes Conjunctivae: conjunctivae normal Neck Neck: full ROM and supple Chest Chest: normal inspection of the chest Resp Effort & Inspection: normal respiratory effort Auscultation: wheezes (Diffuse inspiratory and expiratory) Cardio Rate: regular rate Rhythm: regular rhythm Heart Sounds: no murmurs and no rubs GI Inspection: normal to inspection Palpation: soft, nontender and other (non distended) Auscultation: normal bowel sounds Skin General skin exam: no rashes or lesions noted and other (pink, warm, dry) Neuro General: patient alert, patient awake and patient oriented x3 Speech: speech normal Motor: other (MUNSON) Sensory Exam: no sensory deficits noted Extrem General: normal to inspection, full ROM, pedal edema present and other (No calf pain) Psych Mental Status: mental status grossly normal Speech and Movement: speech and movement normal Affect: normal affect Course Vital Signs Vital signs: Vital Signs Temperature 38.2 C H 08/12/22 07:00 Pulse 86 08/12/22 07:00 Respiratory Rate 18 08/12/22 07:00 Blood Pressure 120/67 08/12/22 07:00 Pulse Oximetry 99 08/12/22 07:00 Temperature 38.2 C H 08/12/22 07:00 Temperature Source Temporal Artery Scan 08/12/22 07:00 Pulse 86 08/12/22 07:00 Respiratory Rate 18 08/12/22 07:00 Blood Pressure 120/67 08/12/22 07:00 Blood Pressure Position Sitting 08/12/22 07:00 Pulse Oximetry 99 08/12/22 07:00 Oxygen Delivery Method Room Air 08/12/22 07:00 Oxygen Flow Rate 0 08/12/22 07:00 Lab/Test Results Lab/Test Results: 08/12/22 07:05 Blood Blood Culture - Pending 08/12/22 07:05 Blood Blood Culture - Pending Sign Out Sign Out Data: Sign Out Comment: 52 yo smoker with uri sxs and rigors x5 days, septic work-up pending, WBC 29K new Last updated by Marcela Gomez MD at 08/12/22 08:12
[2022-08-12] MEDS: Albuterol/Ipratropium 3 ML UPD VIAL UPD (07:27)
[2022-08-12] MEDS: Ketorolac 15 MG/ML VIAL IVP (07:27)
[2022-08-12] MEDS: predniSONE 20 MG TAB 60 MG PO (07:27)
[2022-08-12] MEDS: Normal Saline 1,000 ML 2700 ML IV (07:28)
[2022-08-12 07:37] LABS: Lactate 1.6 mmol/L (0.6-1.4)
[2022-08-12 07:39] LABS: Abs Immature Grans 0.35 10^3/uL (0.0-0.06); Absolute Eosinophil Count 0.03 10^3/uL (0.0-0.7); Basophils % 0.3; Eosinophils % 0.1; HGB 15.4 g/dL (13.5-17.5); Immature Grans % 1.2; Lymphocytes % 5.3; MCH 31.2 pg (27.0-33.0); MCHC 34.2 % (32.0-36.0); MCV 91 fL (80-95); MPV 9.1 fL (8.0-11.0); Monocytes % 9.6; Neutrophils % 83.5; Platelet Count 430 10^3/uL (130-400); RBC 4.94 10^6/uL (4.36-5.78); RDW 13.9 % (11.8-14.1); RDW-SD 46.3 fL
[2022-08-12 07:40] LABS: Absolute Basophil Count 0.09 10^3/uL (0.0-0.2); Absolute Lymphocyte Count 1.55 10^3/uL (1.2-3.4); Absolute Monocyte Count 2.81 10^3/uL (0.1-0.8); Absolute Neutrophil Count 24.45 10^3/uL (1.2-6.7)
[2022-08-12 07:54] LABS: WBC 29.28 10^3/uL (4.4-10.8)
[2022-08-12 08:04] VITALS: PULSE 101; RESP 22; O2SAT 95
[2022-08-12 08:21] VITALS: O2SAT 98
[2022-08-12 08:26] LABS: ALT 27 U/L (16-63); AST 15 U/L (15-37); Albumin 4.4 g/dL (3.4-5.0); Alkaline Phosphatase 97 U/L (46-116); Anion Gap 12.4 mmol/L (3-11); BUN 15 mg/dL (7-18); Bilirubin, Total 0.7 mg/dL (0.2-1.0); CO2 28.6 mmol/L (21.0-32.0); CREATININE 1.1 mg/dL (0.70-1.30); Calcium 9.7 mg/dL (8.5-10.1); Chloride 99 mmol/L (98-107); Estimated GFR 80.27 (mL/min/1.73m2); Glucose 112 mg/dL (74-106); Potassium 4.2 mmol/L (3.5-5.1); Sodium 140 mmol/L (136-145); Total Protein 7.9 g/dL (6.4-8.2)
[2022-08-12 08:30] VITALS: PULSE 98; RESP 12; O2SAT 99
--- NOTE | 2022-08-12 09:40 | W.EDPROG ---
Date of service: 08/12/22 Time of Service: 09:40 Medical Decision Making pt feels better with meds, stable vitals with HR of 90 and o2 sat on room air of 98%. Lungs clear on auscultation now. labs remarkable for wbc of 28, reassuring lactate. Xray with likely left sided infiltrate. Discussed results with pt and options for admission vs discharge, at this time he chooses d/c with oral antibiotics which I feel is reasonable given reassuring vitals and improvement with nebs and steroids. Will start on levofloxacin. He will f/u with his pcp, return precautions given Differential Diagnosis Differential Diagnosis: copd, pneumonia Imaging Data Radiologic Study: Attestation: I personally reviewed and interpreted this imaging study as follows: Imaging: X-Ray Radiologist's impression: likely left sided pneumonia Lab Data Lab results reviewed: Yes I reviewed the patient's lab results. Sign Out Sign Out Data: Sign Out Comment: 52 yo smoker with uri sxs and rigors x5 days, septic work-up pending, WBC 29K new Last updated by Marcela Gomez MD at 08/12/22 08:12 Discharge Plan Disposition Patient Disposition: Home Condition: Stable Discharge Details Clinical Impression: COPD (chronic obstructive pulmonary disease), Pneumonia Primary Care Provider: Jl Metz ED Provider: Shaka Mathews Home Meds and New Rx's Prescriptions: New prednisone 20 mg tablet 60 mg PO DAILY 4 Days Qty: 12 0RF levofloxacin 750 mg tablet 750 mg PO DAILY Qty: 5 0RF Continued ascorbate calcium (vitamin C) 500 mg tablet 500 mg PO DAILY cholecalciferol (vitamin D3) 25 mcg (1,000 unit) capsule 25 mcg PO DAILY lidocaine 5 % adhesive patch,medicated 1 patch topical DAILY Qty: 30 3RF Rx Instructions: leave on most painful area for up to 12 hrs ibuprofen 200 MG tablet 800 mg PO TID PRN magnesium 500 mg Tablet 500 mg PO DAILY Discharge Instructions Instructions: Pneumonia (ED) Additional Instructions: Take the prednisone and levofloxacin as prescribed follow up with your primary care provider within 1 week. You should have a follow up xray in 3-4 weeks to make sure the lung infection has resolved if you feel more ill, have worsening shortness of breath or severe pain return to the emergency department
[2022-08-12 09:58] LABS: COVID-19 PCR Negative (Negative); Influenza A PCR Negative (Negative); Influenza B PCR Negative (Negative); RSV PCR Negative (Negative)
[2022-08-12 09:59] LABS: Source Nasopharynx
[2022-08-12] MEDS: levoFLOXacin 500 MG, levoFLOXacin 250 MG 750 MG PO (10:01)
[2022-08-12] MEDS: Albuterol HFA 8 GM 60 PUFF INH IH (10:01)
[2022-08-12 10:02] VITALS: BP 136/80; PULSE 85; RESP 22; TEMP 36.8; O2SAT 98
== END 2022-08-12 10:03 | disposition home or self-care (01) ==
PROVIDERS: Emergency Medicine; Emergency Provider Emergency Medicine; PCP Nurse Practitioner Family
DX: J44.9 Chronic obstructive pulmonary disease, unspecified (principal); J18.9 Pneumonia, unspecified organism; F17.210 Nicotine dependence, cigarettes, uncomplicated
CPT/HCPCS: 36415; 80053; 87040; 87637; 93005; 96361; 96374; 99284; 71046; 83605; 85025; 93010; J1885; J7512; J7620

== ENCOUNTER 2022-09-15 02:55 | Outpatient (CLI) | payer OTHER, SELFPAY ==
--- NOTE | 2022-09-15 15:53 | DI.RAD_ITS ---
Exam(s) XR CHEST 2V PA LATERAL EXAM: XR CHEST 2V PA LATERAL CLINICAL HISTORY: F/U incidental finding,PNEUMONIA,J18.9 TECHNIQUE: 2D digital imaging was performed of the chest. Two images were obtained. PA and lateral views were obtained. COMPARISON: CR XR CHEST 2V PA LATERAL from 08/12/2022 FINDINGS: MEDIASTINUM: Normal. HEART: Normal. PULMONARY VASCULATURE: Normal. LUNGS: Clear. The left lower lobe infiltrate has resolved. There is COPD. PLEURAL SPACE: No pleural effusion or pneumothorax. BONE:Within normal limits for the patient's age. OTHER FINDINGS:Normal. IMPRESSION: 1. No acute pulmonary findings. 2. The left lower lobe infiltrate has completely resolved. DATA REPOSITORY: RADIATION DOSE DELIVERED:
== END 2022-09-15 03:15 ==
LOC: DI 02:55
PROVIDERS: PCP Nurse Practitioner Family; Visit Provider Nurse Practitioner Family
DX: J18.9 Pneumonia, unspecified organism (principal)
CPT/HCPCS: 71046

== ENCOUNTER 2024-03-14 07:24 | Emergency (ER) | payer OTHER, SELFPAY ==
[2024-03-14 07:26] VITALS: BP 109/60; PULSE 100; RESP 20; TEMP 37.1; O2SAT 98
--- NOTE | 2024-03-14 07:45 | W.ED.GENAD ---
Discharge Plan Disposition Patient Disposition: Home Condition: Stable Discharge Details Clinical Impression: COPD (chronic obstructive pulmonary disease), CAP (community acquired pneumonia) Primary Care Provider: Jl Metz ED Provider: Shaka Mathews Home Meds and New Rx's Prescriptions: New prednisone 20 mg tablet 60 mg PO DAILY 4 Days Qty: 12 0RF levofloxacin 750 mg tablet 750 mg PO DAILY Qty: 6 0RF Continued ibuprofen 200 MG tablet 800 mg PO TID PRN Discharge Instructions Instructions: Pneumonia, Adult ED Additional Instructions: Your x-ray shows you have a pneumonia. You are also likely suffering from a COPD exacerbation Follow-up with your primary care provider this week especially if not improving If you feel more ill or have severe worsening shortness of breath return to the emergency department for reevaluation HPI General Mode of arrival: ambulatory. Date/Time Provider Initiated Documentation: 03/14/24 07:25. Limitations to Documentation: no limitations. Information obtained by: patient. History of Present Illness 53 year old M presents to the emergency department with the chief complaint of cough, described as moderate, Patient started experiencing this day(s) (3) and it has been constant. No relieving factors improve symptom(s), No exacerbating factors reported . Patient notes cough and shortness of breath; denies fever/chills. Related Data Home Medications ?Medication ?Instructions ?Recorded ?Confirmed ibuprofen 200 mg tablet 800 mg PO TID PRN 07/09/15 03/14/24 levofloxacin 750 mg tablet 750 mg PO DAILY #6 tabs 03/14/24 prednisone 20 mg tablet 60 mg (3 x 20 mg) PO DAILY 4 days 03/14/24 #12 tabs Previous Rx's ?Medication ?Instructions ?Recorded levofloxacin 750 mg tablet 750 mg PO DAILY #6 tabs 03/14/24 prednisone 20 mg tablet 60 mg (3 x 20 mg) PO DAILY 4 days 03/14/24 #12 tabs Allergies Allergy/AdvReac Type Severity Reaction Status Date / Time No Known Allergies Allergy Verified 03/14/24 07:32 General Stated Complaint: RespSymp GEMA: 4 Review of Systems All systems reviewed & are unremarkable except as noted in HPI and below Constitutional Constitutional: Denies chills, Denies fever(s) and Denies weakness Cardiovascular Cardiovascular: Reports dyspnea Respiratory Respiratory: Reports cough and Reports dyspnea Gastrointestinal Gastrointestinal: Denies abdominal pain, Denies nausea and Denies vomiting Neurologic Neurologic: Denies weakness Exam Const General: no acute distress Orientation: alert [facility] Head: normal to inspection Ears: external ears normal General nose exam: external nose normal Mouth: moist mucous membranes Eyes General: appearance normal, both eyes and all related structures Neck Neck: normal visual inspection Resp Effort & Inspection: normal respiratory effort and able to speak in complete sentences Auscultation: rhonchi and wheezes Cardio Jugular venous pressure: no JVD Rate: regular rate Heart Sounds: no murmurs Skin General skin exam: no rashes or lesions noted Neuro General: patient alert and patient oriented x3 Extrem General: normal to inspection Psych Mental Status: mental status grossly normal Course Vital Signs Vital signs: Vital Signs Temperature 37.1 C 03/14/24 07:26 Pulse 100 H 03/14/24 07:26 Respiratory Rate 20 03/14/24 07:26 Blood Pressure 109/60 03/14/24 07:26 Pulse Oximetry 98 03/14/24 07:26 Temperature 37.1 C 03/14/24 07:26 Temperature Source Oral 03/14/24 07:26 Pulse 100 H 03/14/24 07:26 Respiratory Rate 20 03/14/24 07:26 Respiratory Effort Normal, Non-Labored 03/14/24 07:34 Respiratory Depth Normal 03/14/24 07:34 Blood Pressure 109/60 03/14/24 07:26 Blood Pressure Position Sitting 03/14/24 07:26 Pulse Oximetry 98 03/14/24 07:26 Oxygen Delivery Method Room Air 03/14/24 07:26 Oxygen Flow Rate 0 03/14/24 07:26 Pain Level 5 03/14/24 07:26 Medical Decision Making 53-year-old male with a history of COPD and continues to smoke comes in with 2 to 3 days of productive cough and shortness of breath. He says that his inhalers he has are not helping. He has been cough he has bilateral chest pain over the lateral ribs. He denies any vomiting, fevers. He is speaking in full sentences with an intermittent cough during exam. He has wheezing at the apices bilaterally and rhonchi at the bases bilaterally. He has no JVD, no leg swelling or calf tenderness. His symptoms are consistent with a COPD exacerbation. I will check a Fluvid and also a chest x-ray. I will treat his symptoms with prednisone and a DuoNeb. Given the productive cough worse than baseline I will treat him with antibiotics. Will reassess. He has no fevers and otherwise appears well so do not feel other lab work is indicated, doubt sepsis at this time. Patient requesting discharge. X-ray shows a right upper lobe infiltrate. He declines to have any blood work or other interventions done and given well appearance and improvement after 1 DuoNeb feels is reasonable. He will continue levofloxacin and prednisone and follow-up with his PCP if not improving and return precautions given Differential Diagnosis Differential Diagnosis: COVID, flu, pneumonia, COPD exacerbation Medical Records Medical records reviewed: Yes I reviewed the patient's medical records. Lab Data Lab results reviewed: Yes I reviewed the patient's lab results. Quality:SDOH Health Related Social Needs: No Data to Display [facility] All Active Problems (Updated 03/14/24 @ 09:11 by Shaka Mathews MD) CAP (community acquired pneumonia) (Acute) Traumatic tear of right rotator cuff (Acute ~12/2021) Genital warts due to HPV (human papillomavirus) (Acute) Liver mass, right lobe (Acute) Cigarette smoker two packs a day or less (Acute) Tendonitis of left rotator cuff (Acute) Depo-Medrol injection: 10/08/21 Colon polyp, hyperplastic (Acute ~10/2019) 11/17/19 Dr. Tico Boyle, 3 hyperplastic polyps, repeat colo 6 mo-1 year Tubular adenoma (Acute ~10/2019) 08/202111/17/19 Dr. Tico Boyle-2 TA; 1 showing high-grade dysplasia, repeat colo 6 mo-1 year scope May 2020 shows no recurrence. Repeat 1 yrs time. Serrated adenoma of colon (Acute ~10/2019) 11/17/19 Dr. Tico Boyle 2 sessile serrated adenoma, repeat colo 6 mo-1 year Diverticula of colon (Acute) Adenomatous polyps (Acute) Hematochezia (Acute) COPD (chronic obstructive pulmonary disease) (Chronic) Medical History External hemorrhoid Hemorrhoid internal and external. Internal were banded 06/15/20 Surgical History History of colonoscopy (~05/2020) 08/2021 Social History Smoking/Tobacco Use Status: Current every day Tobacco Type: cigarettes Tobacco: How many years used: 38 Quit status: considering quitting Smoking risk assessment performed?: Yes Alcohol Intake: current Alcohol Intake frequency: a few times a month Alcohol type: beer and hard liquor Drug use: Daily Substance use type: marijuana Current gender identity: male Do you feel safe at home: Yes Do you feel safe in your relationship?: Yes Additional Social history: unable to assess xiang
[2024-03-14] MEDS: levoFLOXacin 500 MG, levoFLOXacin 250 MG 750 MG PO (07:48)
[2024-03-14] MEDS: Albuterol/Ipratropium 3 ML UPD VIAL UPD (07:48)
[2024-03-14] MEDS: predniSONE 20 MG TAB 60 MG PO (07:48)
--- NOTE | 2024-03-14 08:03 | DI.RAD_ITS ---
Exam(s) XR CHEST 2V PA LATERAL EXAM: XR CHEST 2V PA LATERAL CLINICAL HISTORY: cough. TECHNIQUE: 2D digital imaging was performed. COMPARISON: CR XR CHEST 2V PA LATERAL from 09/15/2022 FINDINGS: 2 views: Heart size is normal. The mediastinum is not widened. Is significant infiltrate in the right upper lobe. Left lung is clear. No pleural effusions. IMPRESSION: Significant right upper lobe infiltrate. DATA REPOSITORY: RADIATION DOSE DELIVERED:
[2024-03-14 08:12] LABS: COVID-19 PCR Negative (Negative); Influenza A PCR Negative (Negative); Influenza B PCR Negative (Negative); RSV PCR Negative (Negative)
[2024-03-14 08:13] LABS: Source Nasopharynx
[2024-03-14 09:19] VITALS: BP 107/58; PULSE 91; RESP 22; O2SAT 100
[2024-03-14] MEDS: Albuterol HFA 8 GM 60 PUFF INH IH (09:19)
[2024-03-14] MEDS: Inhaler, Assist Device 1 EACH MC (09:19)
== END 2024-03-14 09:20 | disposition home or self-care (01) ==
LOC: ER 09:13
PROVIDERS: Emergency Provider Emergency Medicine; PCP Nurse Practitioner Family
DX: J18.9 Pneumonia, unspecified organism (principal); J44.1 Chronic obstructive pulmonary disease with (acute) exacerbation
CPT/HCPCS: 36415; 87637; 99283; 71046; 99284; J7512; J7620